=== PATIENT | female | born 1985 | race Caucasian/White ===

== ENCOUNTER 2018-01-20 12:21 | Emergency (ER) | payer BC, OTHER ==
[2018-01-20 13:38] LABS: BASO # 0.1 10^3/uL (0.0-0.2); BASO % 0.5 % (0.0-1.0); EOS # 0.1 10^3/uL (0.0-0.50); EOS % 0.6 % (0.0-3.0); HEMATOCRIT 40.1 % (36.0-47.0); HEMOGLOBIN 13.1 g/dl (12.0-15.5); IMMATURE GRANULOCYTE % 0.4 % (0-3.0); LYMPH # 3.3 10^3/uL (1.5-4.5); LYMPH % 26.5 % (24.0-44.0); MEAN CORPUSCULAR HEMOGLOBIN 28.9 pg (27.0-33.0); MEAN CORPUSCULAR HGB CONC 32.7 g/dl (32.0-36.5); MEAN CORPUSCULAR VOLUME 88.5 fl (80.0-96.0); MONO # 0.9 10^3/uL (0.0-0.8); MONO % 7.3 % (0.0-5.0); NEUTROPHILS # 8.1 10^3/uL (1.8-7.7); NEUTROPHILS % 64.7 % (36.0-66.0); PLATELET COUNT, AUTOMATED 303 10^3/uL (150-450); RED BLOOD COUNT 4.53 10^6/uL (4.00-5.40); RED CELL DISTRIBUTION WIDTH 13.2 % (11.5-14.5); WHITE BLOOD COUNT 12.5 10^3/uL (4.0-10.0)
[2018-01-20 14:09] LABS: HCG, SERUM QUANTITATIVE 17394 MIU/ML
[2018-01-20 14:13] LABS: KETONE, URINE AUTO RFX NEGATIVE (NEGATIVE); LEUKOCYTE ESTERASE UR AUTO RFX NEGATIVE (NEGATIVE); MUCUS, URINE RFX SMALL (NEGATIVE); NITRITE, URINE AUTO RFX NEGATIVE (NEGATIVE); RBC, URINE AUTO RFX 3 /HPF (0-3); SPECIFIC GRAVITY UR AUTO RFX 1.018 (1.002-1.035); SQUAM EPITHELIAL CELL UR AURFX 1 /HPF (0-6); WBC, URINE AUTO RFX 3 /HPF (0-3)
== END 2018-01-20 16:15 | disposition home or self-care (01) ==
LOC: M ED 12:21
DX: O26.891 Other specified pregnancy related conditions, first trimester (principal); O34.81 Maternal care for other abnormalities of pelvic organs, first trimester; N83.202 Unspecified ovarian cyst, left side; Z3A.01 Less than 8 weeks gestation of pregnancy; Z88.0 Allergy status to penicillin; Z88.2 Allergy status to sulfonamides
CPT/HCPCS: 76801

== ENCOUNTER 2018-09-11 01:48 | Inpatient (IN) | payer BC, OTHER ==
[~2018-09-11] VITALS: Ht 165.1 cm; Wt 113.9 kg
[2018-09-11] VITALS (39 sets, daily range): BP systolic 96–147; BP diastolic 51–94
[~2018-09-11 01:48] MED LIST: PRENTAB55 PO
[2018-09-11] MEDS ORDERED: ECOT81TA5 PO (02:54)
[2018-09-11] MEDS ORDERED: LR 1,000 ML IV SCH ×2 (03:38→23:15)
[2018-09-11] MEDS ORDERED: OXYTOCIN DRIP 30 UNITS in APPROPRIATE DILUENT 1 EA IV SCH ×2 (03:45→23:26)
[2018-09-11 04:33] LABS: HEMATOCRIT 39.3 % (36.0-47.0); HEMOGLOBIN 12.7 g/dl (12.0-15.5); MEAN CORPUSCULAR HEMOGLOBIN 27.1 pg (27.0-33.0); MEAN CORPUSCULAR HGB CONC 32.3 g/dl (32.0-36.5); MEAN CORPUSCULAR VOLUME 83.8 fl (80.0-96.0); PLATELET COUNT, AUTOMATED 197 10^3/uL (150-450); RED BLOOD COUNT 4.69 10^6/uL (4.00-5.40); WHITE BLOOD COUNT 12.1 10^3/uL (4.0-10.0)
[2018-09-11 05:03] LABS: TOTAL PROTEIN,RANDOM URINE 311.5 MG/DL (0.0-12.0)
[2018-09-11 05:25] LABS: ALT/SGPT 15 U/L (12-78); BILIRUBIN,TOTAL 0.2 MG/DL (0.2-1.0); CREATININE FOR GFR 0.55 MG/DL (0.55-1.30); GLOMERULAR FILTRATION RATE > 60.0 (>60); LDH LACTATE DEHYDROGENASE 292 U/L (84-246)
--- NOTE | 2018-09-11 06:45 | HPE ---
DATE OF ADMISSION: 09/11/2018 Rosanna is a 33-year-old, 3, para 1-0-1-1 with an expected date of confinement (EDC) of 09/23/2018 based on third trimester ultrasound. She presents to labor and delivery today with a complaint of spontaneous rupture of membranes at approximately 0100, clear fluis. She does deny vaginal bleeding and regular painful contractions. She does report continued leakage and the fetus has been active. Her care was initiated at [facility] in [place]. Her course is complicated by obesity and a prior section due to heart rate abnormality during labor and preeclampsia. OBSTETRICAL HISTORY: September 2009 - She had an ectopic . January 2012 - 39 weeks gestation, 8 pounds 9 ounces male, delivered via section and complicated by preeclampsia. OBSTETRIC LABS: A+. Antibody screen negative. VDRL nonreactive. Urine culture was positive with a test of cure negative. Hepatitis B surface antigen nonreactive. HIV negative. Gonorrhea and chlamydia negative. Rubella immune. Pap was normal. Drug screen negative. Hepatitis C antibody negative. Diabetic screening normal at 123. Repeat gonorrhea and chlamydia negative. Group B strep positive. PAST MEDICAL HISTORY: Childhood varicella, heart murmur, obesity, polycystic ovarian syndrome. SURGERIES: section, wisdom tooth extraction, colposcopy. FAMILY HISTORY: Noncontributory. SOCIAL HISTORY: The patient's partner is at bedside and he is supportive. She is a nonsmoker. She denies alcohol and drug use. No history of any sexually transmitted infections and denies history of abuse - physical, sexual and emotional. CURRENT MEDICATIONS: - vitamin - valacyclovir for HSV 1 as needed. ALLERGIES: - PENICILLIN - SULFA - PET DANDER - SEASONAL ALLERGIES OBJECTIVE: Temperature 99.3, pulse 97, respirations 20, blood pressure is 142/94. She is alert and oriented times three. She is in no apparent discomfort. heart rate is 130 with moderate variability, positive accelerations, no decelerations. There is no pattern of regular contractions. She is grossly ruptured. Large amount of clear fluid noted. Her abdomen is gravid, cephalic presentation. Estimated weight 8 and 1/2 to 9 9 pounds. Sterile Vaginal Exam: 1 cm dilated, 80% effaced and ballottable station, mid position. ASSESSMENT: 1. Intrauterine at 38-2/7 weeks. 2. heart rate is category one. 3. Premature rupture of membranes. 4. Prior section with a desire for trial of labor after . 5. Pre eclampsia potential PLAN: Admit the patient to labor and delivery. Clear liquid diet. Out of bed ad yanna. Routine lab work with the addition of pre-eclamptic profile and a spot urine. Start IV Pitocin for labor augmentation. Start IV antibiotics for GBS prophylaxis. She reports her allergy to penicillin was hives as a child and denies any anaphylactic reaction. I did review risks and benefits to induction including but not limited to failed induction, increased risk for section and intolerance to labor. The patient has been verbally consented for emergency surgery and blood products. I do anticipate labor and she does request an epidural when she is uncomfortable. The patient and her family had their questions answered and desire to proceed with IV Pitocin. I anticipate active labor. MTDD
--- NOTE | 2018-09-11 09:12 | NUR ---
Progress Note Taking over the care of this 33yo at 38+2 weeks. Undergoing a trial of labor after . Diagnosed with PROM, clear fluid at 0105 this AM. Fritz satinderangel receiving Pitocin for labor augmentation, active management. GBS positive. Receiving IV abx for GBS prophylaxis, Ancef. Noted to have elevated BPs (mild range) and proteinuria (elevated Pr/Cr ratio). History of pre-e with previous . Had PLTCS for worsening pre-e, non-reassuring status. Highly desirous of . Has been a patient of Nicole Ceballos for care. Currently normotensive, normal HR, afebrile SVE: /-3 US,daniel: cephalic presentation confirmed. EFM: Cat I [place]: ctxs every 2-5min; pit at 12mU/min Cook cervical dilator balloon inserted (60ml/40ml) A/P: 33yo , 38+2 weeks. PROM, TOLAC undergoing active management. Reassuring maternal and status thus far. -Continue with Pitocin -Repeat SVE once Cook balloon is out. Julian Rutherford DO FACOG
[2018-09-11] MEDS ORDERED: PROMETHAZINE INJ 25 MG/ML VIAL (J2550) IV ONE (09:15)
[2018-09-11] MEDS ORDERED: BUTORPHANOL 2 MG/ML INJ (J0595) IV ONE (09:15)
[2018-09-11] MEDS ORDERED: REFRIGERATOR IV KEYS XX PRN ×2 (11:30→14:15)
[2018-09-11] MEDS ORDERED: EPIDURAL COMMENT XX SCH ×2 (11:30→14:15)
[2018-09-11] MEDS ORDERED: EPIDURAL/PCA KEYS XX PRN ×2 (11:30→14:15)
[2018-09-11] MEDS: FENTANYL/ROPIVACAINE/NACL BAG 100 ML EPIDURAL SCH ×2 (12:10→19:24)
[2018-09-11] MEDS ORDERED: ceFAZolin SOD 1 GM in D5W MINI-BAG PLUS 50 ML IV SCH (12:30)
[2018-09-11] MEDS ORDERED: LACTATED RINGER'S 1000 ML IV PRN (14:15)
[2018-09-11] MEDS ORDERED: NALOXONE INJ 0.4 MG/1 ML VIAL (J2310) IV PRN ×3 (14:15→22:50)
[2018-09-11] MEDS ORDERED: ePHEDrine SULFATE 25 MG/5 ML(5MG/ML) SYRINGE IV PRN (14:15)
[2018-09-11] MEDS ORDERED: ONDANSETRON 4MG/2ML VIAL (J2405) IV PRN ×4 (14:15→23:30)
[2018-09-11] MEDS ORDERED: diphenhydrAMINE INJ 50MG/ML VIAL (J1200) IV PRN ×2 (14:15→22:50)
--- NOTE | 2018-09-11 14:31 | NUR ---
Progress Note Pt had epidural placed, and she is comfortable now. Cook balloon fell out around 1215. +bloody show. Pt hasn't had a lot of amniotic fluid expressed over the past several hours. Predominantly Cat I FHR, brief periods of Cat II FHR. Early vs late decels. Moderate variability throughout. Intermittently hypertensive (mild range), normal HR, afebrile SVE: 4/75/-3, cephalic. FSE placed with +LOF/clear [place]: ctxs q 2-4min; pit at 12mU/min FHR currently Cat I A/P: Overall reassuring maternal and status. -Continue with TOLAC -Adjust Pitocin as needed (per protocol) -Repeat SVE in 2-4 hours or sooner PRN. Julian Rutherford DO FACOG
--- NOTE | 2018-09-11 15:49 | NUR ---
Progress Note Pt still comfortable with epidural. Still predominantly Cat I FHR with brief periods of Cat II FHR. Early vs late decels. Moderate variability throughout. Currently normotensive, normal HR, afebrile SVE: 4/75/-3, cephalic; unchanged FSE placed with +LOF/clear [place]: ctxs q 2-4min; pit at 12mU/min FHR currently Cat I IUPC inserted. A/P: Overall reassuring maternal and status. -Continue with TOLAC -Adjust Pitocin as needed (per protocol) -Repeat SVE in 2-4 hours or sooner PRN. Julian Rutherford, DO FACOG
--- NOTE | 2018-09-11 18:21 | NUR ---
Progress Note Pt starting to feel more vaginal / lower pelvic pressure. Epidural still offering adequate relief. VSS,normal HR, afebrile SVE: /-3 FSE: Overall reassuring/cat I IUPC : >200mVU / 10min A/P: Protracted labor course. Pt counseled regarding arrest of dilation. Offered LTCS now, but patient requested allowing 2 more hours with Pitocin to see if cervical change occurs. Given patient's current status and current FHR pattern, this is acceptable. Will repeat SVE in approx 2 more hours. Julian Rutherford DO FACOG
[2018-09-11] MEDS ORDERED: BICITRA 30ML SOLN UDC As Ordered ONE (21:25)
[2018-09-11] MEDS ORDERED: ceFAZolin 2 GM/D5W 50 ML IV BAG (J0690 PER 500MG) As Ordered ONE (21:25)
[2018-09-11] MEDS ORDERED: AZITHROMYCIN INJ 500 MG, VIAL MATE ADAPTER 1 EACH in D5W 250 ML IV ONE (21:30)
[2018-09-11] MEDS ORDERED: BICITRA 30ML SOLN UDC PO ONE (21:30)
[2018-09-11] MEDS ORDERED: LIDOCAINE 2% W/EPIN INJ 20ML **PRES FREE As Ordered ONE (22:09)
[2018-09-11] MEDS ORDERED: ONDANSETRON 4MG/2ML VIAL (J2405) As Ordered ONE (22:09)
[2018-09-11] MEDS ORDERED: dexameTHASONE 4 MG/ML 1ML VIAL (J1100) As Ordered ONE (22:09)
[2018-09-11] MEDS ORDERED: SODIUM BICARBONATE 8.4% INJ 50 ML SYRINGE As Ordered ONE (22:09)
[2018-09-11] MEDS ORDERED: PHENYLephrine HCL 500 MCG/5 ML (100MCG/ML) SYRINGE (J2370) As Ordered ONE (22:09)
[2018-09-11] MEDS ORDERED: METOCLOPRAMIDE INJ 10MG/2ML VIAL (J2765) As Ordered ONE (22:09)
[2018-09-11] MEDS ORDERED: OXYTOCIN INJ 10 UNITS/ML VIAL (J2590) As Ordered ONE (22:10)
[2018-09-11] MEDS ORDERED: MORPHINE PRES-FREE INJ 10 MG/10 ML VIAL (J2274) As Ordered ONE (22:11)
[2018-09-11 22:37] LABS: CORD GAS ABE A -9.1; CORD GAS HCO3 A 22.1 MEQ/L; CORD GAS HCO3 V 22.8 MEQ/L; CORD GAS O2 SAT A < 15.0 %; CORD GAS O2 SAT V 17.2 %; CORD GAS PCO2 A 71.7 mmHg; CORD GAS PCO2 V 64.5 mmHg; CORD GAS PH A 7.107 UNITS; CORD GAS PH V 7.167 UNITS; CORD GAS PO2 A < 10.0 mmHg; CORD GAS PO2 V 20.7 mmHg; CORD GAS TCO2 A 24.3 MEQ/L; CORD GAS TCO2 V 24.8 MEQ/L
[2018-09-11] MEDS ORDERED: KETOROLAC 60 MG/2 ML VIAL (J1885) As Ordered ONE (22:48)
[2018-09-11] MEDS ORDERED: NALBUPHINE HCL 10 MG/ML AMP (J2300) IV PRN ×2 (22:50→23:15)
[2018-09-11] MEDS ORDERED: METOCLOPRAMIDE INJ 10MG/2ML VIAL (J2765) IV PRN (22:50)
[2018-09-11] MEDS ORDERED: fentaNYL 100 MCG/2 ML INJECTION (J3010) IV PRN (23:15)
--- NOTE | 2018-09-11 23:22 | NUR ---
Operative Note Date of procedure: 09/11/2018 Procedure:, Repeat low-transverse section, left paratubal cystectomy Anesthesia: Epidural Preoperative diagnosis: 38+2 weeks gestation Unsuccessful trial of labor, arrest of dilation Postoperative diagnosis: Same as preoperative diagnosis left paratubal cyst Indication: Arrested dilation at 4 cm. Left paratubal cyst. Primary surgeon: Fabrizio Rutherford D.O., F. A.C.O.G. Wood Cabinetmaker: Robert Gongora MD FACOG (needed for surgical site exposure and assistance with delivery) Estimated blood loss: 800 ml IV fluids administered: 1500 ml crystalloid Drains: Bal catheter. Urine output:150 ml [place] data: Apgars 8 and 9. Birthweight 3630, 8lbs 0oz. Preoperative/prophylactic antibiotics: Ancef 2 g IV (given within 30 minutes prior to surgical start time). Azithromycin 500mg IV x 1. Intraoperative findings: Occiput posterior, cephalic. Normal uterus and bilateral adnexa. Extensive bladder adhesions to the lower uterine segment. Specimen(s): left paratubal cyst Procedure: The patient was counseled and consented on the risks, benefits, indications and alternatives of the procedure. Informed consent was obtained and placed in the c roche. She was taken to the operating room with an IV running. She was placed on the operating table. Spinal anesthesia was administered without any difficulty and found to be adequate. She was placed in the dorsal supine position with a leftward tilt. Sequential compression devices were placed on the lower extremities. A Bal catheter was placed under sterile conditions. She was sterilely prepped and draped. A surgical timeout was performed per protocol. Spinal anesthesia was again found to be adequate. Using the 10 blade a Pfannenstiel incision was performed. The 10 blade was used to dissect down to the level of the rectus sheath fascia. The rectus sheath fas ree was incised at the midline, and the fascial incision was extended with Joyce scissors. Boby clamps were used to grasp the superior and inferior aspect of the fascial incision and the rectus muscle bellies were dissected off sharply and bluntly. The midline was identified and the rectus muscle bellies were manually . The peritoneum was identified and clamped with hemostats and elevated. The peritoneum was then incised with Metzenbaum scissors. Entry into the intraperitoneal cavity was achieved. The peritoneal opening was extended with manual stretch . There was good visualization of both the bladder and the lower uterine segment. The bladder retractor was placed. The vesicouterine peritoneum was dissected with Metzenbaum scissors and blunt dissection. Bladder retractor was repositioned. A low transverse uterine incision was made with a new 10 blade. The hysterotomy was extended with manual stretch. The amniotic sac was protruding and then artificially ruptured. Clear amniotic fluid was noted. The baby's head delivered through the hysterotomy with ease. The remainder of the body delivered with ease. The cord was doubly clamped and cut and the baby was handed off to awaiting care. See data above. The placenta was manually removed and noted to be fully intact. The uterus was exteriorized. The intrauterine cavity was cleared of all clot and debris with a laparotomy sponge. The hysterotomy was closed with 0 Vicryl in running, locked fashion. A second imbricating closure was performed over the initial laye r closure using 0 Vicryl The hysterotomy was noted to be hemostatic. A left paratubal cyst was excised at the base with the Bovie. The posterior cul-de-sac was irrigated and cleared of all clot and debris. The uterus was replaced back into the abdomen. The paracolic gutters were cleared of all clot and debris with damp laparotomy sponges. The hysterotomy is reinspected and noted to be hem ostatic. Sponge, needle and instrument counts were correct. The peritoneum was c losed with 3-0 Vicryl in running fashion. The rectus muscle bellies were reapproximated with 3-0 Vicryl with a series of interrupted sutures. The rectus muscle bellies were noted to be hemostatic. The fascia was closed with 0 Vicryl in running fashion. Sponge, needle and instrument counts were again correct. The subcutaneous layer was irrigated. Small subcutaneous bleeders were cauterized with Bovie. The subcutaneous layer was reapproximated with 3-0 Vicryl in running fashion. The skin was closed with 3-0 Monocryl in subcuticular fashion. A bandage was placed over the closed incision. The final sponge, instrument and needle count was correct. She tolerated the entire procedure very well. She was transferred to the PACU in good and stable condition. Dr. Fabrizio Rutherford D.O., F.A.C.O.G
[2018-09-11] MEDS ORDERED: PERCOCET PO (23:23)
[2018-09-11] MEDS ORDERED: IBUP80TA PO (23:24)
[2018-09-11] MEDS ORDERED: COLA100C5 PO (23:25)
[2018-09-11] MEDS: LR 1,000 ML IV SCH (23:26)
[2018-09-11] MEDS ORDERED: PROMETHAZINE 25 MG TAB PO PRN (23:30)
[2018-09-11] MEDS ORDERED: PERCOCET 5MG/325MG TAB PO PRN (23:30)
[2018-09-11] MEDS ORDERED: MEASLES,MUMPS,RUBELLA VACCINE INJ (MMR-II) (90707) SC SCH (23:30)
[2018-09-11] MEDS ORDERED: RHOGAM 300 MCG (1500 IU) INJ (J2790) IM SCH (23:30)
[2018-09-11] MEDS ORDERED: OXYTOCIN 30 UNITS IN 0.9% NaCl 500ML IV BAG (J2590) As Ordered ONE (23:43)
[2018-09-12] VITALS (7 sets, daily range): BP systolic 108–142; BP diastolic 60–81
--- NOTE | 2018-09-12 06:38 | NUR ---
POD#1 S/p RLTCS (failed TOLAC) S: Pain well controlled, tolerating PO, lochia decreasing / minimal. O: VSS, normotensive, normal HR, afebrile, adequate UOP H: RRR L: CTAB Abd: soft,nt,nd, incision dry w/ bandage Ext: no c/c/e Postop h/h: 11/33.6 A/P: POD#1 s/p RLTCS. Hemodynamically stable, afebrile, good pain control -Routine postop care -Anticipate d/c on POD2/3. Julian Rutherford DO
[2018-09-12] MEDS: KETOROLAC 30 MG/ML VIAL (J1885) IV SCH ×3 (07:11→18:41)
[2018-09-12 07:25] LABS: HEMATOCRIT 33.6 % (36.0-47.0); MEAN CORPUSCULAR HEMOGLOBIN 27.6 pg (27.0-33.0); MEAN CORPUSCULAR HGB CONC 32.7 g/dl (32.0-36.5); MEAN CORPUSCULAR VOLUME 84.4 fl (80.0-96.0); PLATELET COUNT, AUTOMATED 170 10^3/uL (150-450); RED BLOOD COUNT 3.98 10^6/uL (4.00-5.40); WHITE BLOOD COUNT 20.3 10^3/uL (4.0-10.0)
[2018-09-12] MEDS: LR 1,000 ML IV SCH (07:26)
[2018-09-12] MEDS: DOCUSATE SODIUM 100 MG CAP PO SCH ×2 (10:30→21:32)
[2018-09-12] MEDS: PRENATAL VITAMINS CHEWABLE TABLET PO SCH (10:30)
[2018-09-13] MEDS: IBUPROFEN 800 MG TAB PO SCH ×3 (01:17→16:40)
[2018-09-13 02:00] VITALS: BP 136/76
[2018-09-13 06:00] VITALS: BP 124/72
--- NOTE | 2018-09-13 07:16 | IPNPDOC ---
Text Note Date of Service The patient was seen on 09/13/18. NOTE PO #2 Feels well. Adequate pain management. Breast and bottle feeding. Voiding, bowels have moved VSS, afebrile, normotensive Breasts soft, nipples intact Fundus firm, NT Dressing intact with old drainage Lochia rubra scant without odor Pt desires assist with today. Anticipate D/C in am. VS,Fishbone, I+O VS, Fishbone, I+O Vital Signs Date Time Temp Pulse Resp B/P (MAP) Pulse Ox O2 Delivery O2 Flow Rate FiO2 09/13/18 06:00 97.4 77 18 124/72 (89) 09/12/18 18:05 97 09/12/18 06:08 Room Air I&O- Last 24 Hours up to 6 AM 09/13/18 06:00 Output Total 350 ml Balance -350 ml Mimi Blanco CNM Sep 13, 2018 07:16
[2018-09-13] MEDS: DOCUSATE SODIUM 100 MG CAP PO SCH ×2 (08:56→21:31)
[2018-09-13] MEDS: PRENATAL VITAMINS CHEWABLE TABLET PO SCH (08:57)
[2018-09-13 18:00] VITALS: BP 148/86
[2018-09-13] MEDS: PERCOCET 5MG/325MG TAB PO PRN (21:31)
[2018-09-14] MEDS: IBUPROFEN 800 MG TAB PO SCH ×2 (01:46→08:57)
[2018-09-14] MEDS: PERCOCET 5MG/325MG TAB PO PRN ×2 (05:03→10:53)
[2018-09-14 06:00] VITALS: BP 142/79
[2018-09-14] MEDS: DOCUSATE SODIUM 100 MG CAP PO SCH (08:57)
[2018-09-14] MEDS: PRENATAL VITAMINS CHEWABLE TABLET PO SCH (08:57)
[2018-09-14] MEDS ORDERED: OXYC1TAB23 PO (09:14)
--- NOTE | 2018-09-15 12:29 | DSES ---
DATE OF ADMISSION: 09/11/2018 DATE OF DISCHARGE: 09/14/2018 DISCHARGE DIAGNOSES: 1. Repeat section for failed induction. 2. Gestational hypertension. DISCHARGE CONDITION: Stable. DISCHARGE MEDICATIONS: - ibuprofen - Percocet - Colace DISCHARGE INSTRUCTIONS: 1. She is instructed to followup in 1 week for incision and blood pressure check. 2. To remain on pelvic rest for 8 weeks. 3. To report severe pain, heavy vaginal bleeding or incision issues. 4. Report issues with incision. HOSPITAL COURSE: Mrs. White is a 33-year-old 3, para 1 who presented at 38 weeks with rupture of membranes. Her history was significant for a prior section. She had expressed a desire for trial of labor after section which was unsuccessful. She had an arrest of dilatation and underwent uncomplicated section productive of a live born infant. Weight was 3630 grams or 8 pounds. Apgars 8 and 9. Estimated blood loss is 800 mL. She did well postoperatively and by postop day #3 had met all discharge criteria and was discharged home in stable condition. PHYSICAL EXAM ON DAY DISCHARGE: Vital signs: Blood pressure 142/79. Respiration 18. Pulse 82. Temperature 97.9. General appearance: She is well appearing, in no acute distress. Her abdomen was nontender. Fundus is firm below umbilicus. Incision was dressed. Extremities negative for calf tenderness.
--- NOTE | 2018-09-22 10:48 | NUR ---
Discharge Summary Date of admission: 09/11/18 Date of discharge: 09/14/18 Admitting diagnosis: Active labor, ruptured membranes at term. Trial of labor after . Gestational HTN Discharge diagnosis: Status post repeat low transverse section. Single, liveborn delivered via . Indication: Arrest of dilation, unsuccessful trial of labor after . Discharge Summary: 33 year-old G3 now P2. She was admitted on 09/11/18 at 38 weeks EGA with a diagnosis of ruptured membranes, gestational HTN, and desiring trial of labor after section. Her labor course was complicated by arrest of dilation. This prompted an unscheduled delivery under epidural anesthesia. The delivery was uncomplicated. The patient's postoperative course was uncomplicated. By 09/14/18, the patient was meeting all discharge criteria. Her pain was well controlled on oral pain meds. She was ambulating without assistance, voiding spontaneously, tolerating a regular diet, and her lochia/bleeding was minimal. Physical exam on date of discharge: Vitals: normotensive/mild HTN, normal HR, afebrile Heart: regular rate and rhythm with no murmurs, gallops, rubs. Lungs: clear to auscultation bilaterally, no wheezes, crackles, rales, ronchi Abd: soft, non-distended, appropriately tender. Normoactive bowel sounds. Incision: clean, dry, intact without surrounding erythema or induration. Ext: non-edematous, non-tender, negative Misty's sign bilaterally Assessment/Plan: 33 year-old G3 now P2 status post repeat delivery on 09/11/18. Hemodynamically stable, afebrile, with good pain control. Meeting all discharge criteria. -Routine infectious, fever, pain, and bleeding precautions reviewed -Surgical wound/incisional care / precautions reviewed. -Discharge medications: Percocet, Motrin, Colace. -Outpatient follow up in 1-2 weeks for a routine incision / postoperative check. Dr. Fabrizio Rutherford, DO, FACOG
== END 2018-09-14 12:10 | disposition home or self-care (01) | DRG 540 ==
LOC: M LDO 01:48 → M LDI 03:36 → M OBS 09-12 00:52
PROVIDERS: ADMIT Advanced Practice Midwife; ATTEND Advanced Practice Midwife
PROC: 0UB60ZZ Excision of Left Fallopian Tube, Open Approach (ICD-10-PCS; 2018-09-11)
PROC: 10D00Z1 Extraction of Products of Conception, Low, Open Approach (ICD-10-PCS; principal; 2018-09-11 21:56)
DX: O42.02 Full-term premature rupture of membranes, onset of labor within 24 hours of rupture (principal); N83.8 Other noninflammatory disorders of ovary, fallopian tube and broad ligament; O34.211 Maternal care for low transverse scar from previous cesarean delivery; Z37.0 Single live birth; Z3A.38 38 weeks gestation of pregnancy; Z88.0 Allergy status to penicillin; Z88.2 Allergy status to sulfonamides; O62.0 Primary inadequate contractions; O26.893 Other specified pregnancy related conditions, third trimester

== ENCOUNTER 2018-10-20 08:18 | Emergency (ER) | payer OTHER ==
[~2018-10-20] VITALS: Ht 165.1 cm; Wt 102.8 kg
[~2018-10-20 08:18] MED LIST changes: +COLA100C5 PO; +ECOT81TA5 PO; +IBUP80TA PO; +OXYC1TAB23 PO; +PERCOCET PO
[2018-10-20 08:19] VITALS: BP 131/78
[2018-10-20] MEDS ORDERED: FLUORESCEIN OPHTH 1 MG STRIP OS ONE (08:45)
[2018-10-20] MEDS ORDERED: TETRACAINE 0.5% OPHTH SOLN 4ML OS ONE (08:45)
[2018-10-20] MEDS ORDERED: ERYTOIN8 OS (09:03)
== END 2018-10-20 09:13 | disposition home or self-care (01) ==
LOC: M ED 08:18
DX: H10.32 Unspecified acute conjunctivitis, left eye (principal); Z88.0 Allergy status to penicillin; Z88.2 Allergy status to sulfonamides; Z97.3 Presence of spectacles and contact lenses

== ENCOUNTER → 2019-05-25 | Outpatient (REF) | payer OTHER ==
[~2019-05-25] MED LIST changes: +ERYTOIN8 OS
[2019-05-29 00:08] LABS: HPV HYBRID CAPTURE II Negative (Negative)
== END ==
LOC: M LAB REF 13:47
PROVIDERS: ATTEND Obstetrics & Gynecology
DX: Z12.4 Encounter for screening for malignant neoplasm of cervix (principal)

== ENCOUNTER → 2020-02-10 | Outpatient (CLI) | payer OTHER | LOC: M LABSMTC 11:15 | PROVIDERS: ATTEND Pediatrics | DX: Z03.818 Encounter for observation for suspected exposure to other biological agents ruled out (principal); Z11.59 Encounter for screening for other viral diseases ==

== ENCOUNTER → 2020-03-04 | Outpatient (CLI) | payer OTHER ==
[2020-03-04 10:39] LABS: BASO # 0.1 10^3/uL (0.0-0.2); BASO % 0.7 % (0.0-1.0); EOS # 0.1 10^3/uL (0.0-0.5); HEMATOCRIT 40.3 % (36.0-47.0); HEMOGLOBIN 12.5 g/dl (12.0-15.5); LYMPH # 2.4 10^3/uL (1.5-5.0); LYMPH % 27.6 % (24.0-44.0); MEAN CORPUSCULAR HEMOGLOBIN 27.4 pg (27.0-33.0); MEAN CORPUSCULAR VOLUME 88.2 fl (80.0-96.0); MONO # 0.8 10^3/uL (0.0-0.8); MONO % 8.9 % (0.0-5.0); NEUTROPHILS # 5.3 10^3/uL (1.5-8.5); NEUTROPHILS % 61.2 % (36.0-66.0); PLATELET COUNT, AUTOMATED 299 10^3/uL (150-450); RED BLOOD COUNT 4.57 10^6/uL (4.00-5.40); WHITE BLOOD COUNT 8.7 10^3/uL (4.0-10.0)
[2020-03-04 10:54] LABS: ALT/SGPT 23 U/L (12-78); BILIRUBIN,TOTAL 0.3 MG/DL (0.2-1.0); BLOOD UREA NITROGEN 11 MG/DL (7-18); CALCIUM LEVEL 8.9 MG/DL (8.5-10.1); CARBON DIOXIDE LEVEL 25 MEQ/L (21-32); CHLORIDE LEVEL 108 MEQ/L (98-107); CREATININE FOR GFR 0.77 MG/DL (0.55-1.30); GLOMERULAR FILTRATION RATE > 60.0 (>60); GLUCOSE, FASTING 88 MG/DL (70-100); POTASSIUM SERUM 4.3 MEQ/L (3.5-5.1); SODIUM LEVEL 140 MEQ/L (136-145); THYROID STIMULATING HORMONE 0.895 uIU/ML (0.358-3.740); TOTAL PROTEIN 7.2 GM/DL (6.4-8.2)
== END ==
LOC: M WUC 08:19
PROVIDERS: ATTEND Nurse Practitioner Family
DX: Z00.00 Encounter for general adult medical examination without abnormal findings (principal)

== ENCOUNTER → 2020-10-28 | Outpatient (CLI) | payer OTHER ==
[~2020-10-28] MED LIST changes: +CEFD300CAP PO; +METR-265 PO; +ONDA4TAB6 PO; +PRENTAB53 PO; +ZOLO100T
--- NOTE | 2020-10-28 13:33 | REP ---
INDICATION: GESTATIONAL DATING POSSIBLE EPTOPIC PREG. COMPARISON: None. TECHNIQUE: Transabdominal imaging. FINDINGS: Uterus is anteverted. There is a gestational sac in the fundus and it appears that the placenta may be forming post posteriorly it shows grade 0 maturation characteristics without previa no yolk sac is seen. There is fluid and a pole is noted measuring 6.1 cm by crown-rump length. This would give her 12 week 4 day date with the EDC 05/08/2021. heart rate 145 and regular. No subchorionic bleed identified. The right ovary 4.3 by 3.6 x 2.8 cm and the left 3.4 x 1.9 by 2.7 cm. Neither ovary shows solid or cystic mass nor adjacent free fluid. IMPRESSION: Single intrauterine gestational sac in the fundus with a pole having a crown-rump length 6.1 cm corresponding to 12 weeks 4 days, this gives EDC 05/08/2021 heart rate 145. No subchorionic bleed. Ovaries fairly symmetric without adnexal mass or pelvic free fluid. <Electronically signed by Kole Christiansen > 10/28/20 [id number]
== END ==
LOC: M RAD 12:14
PROVIDERS: ATTEND Nurse Practitioner Family
DX: Z32.01 Encounter for pregnancy test, result positive (principal); Z3A.12 12 weeks gestation of pregnancy

== ENCOUNTER 2020-11-01 17:05 | Emergency (ER) | payer OTHER ==
[~2020-11-01] VITALS: Ht 165.1 cm; Wt 53.6 kg
[~2020-11-01 17:05] MED LIST changes: -CEFD300CAP PO; -METR-265 PO; -ONDA4TAB6 PO; -PRENTAB53 PO; -ZOLO100T
[2020-11-01] MEDS ORDERED: PRENTAB53 PO (17:16)
[2020-11-01] MEDS ORDERED: ZOLO100T (17:16)
[2020-11-01 18:32] LABS: APPEARANCE, URINE CLOUDY (CLEAR); BACTERIA, URINE AUTO 1+ (NEGATIVE); BILIRUBIN, URINE AUTO NEGATIVE (NEGATIVE); BLOOD, URINE BLOOD 2+ (NEGATIVE); CALCIUM OXALATE CRYSTALS LARGE; COLOR, URINE YELLOW (YELLOW); GLUCOSE, URINE (UA) AUTO NEGATIVE (NEGATIVE); KETONE, URINE AUTO NEGATIVE (NEGATIVE); LEUKOCYTE ESTERASE, URINE AUTO NEGATIVE (NEGATIVE); MUCUS, URINE SMALL (NEGATIVE); NITRITE, URINE AUTO NEGATIVE (NEGATIVE); PROTEIN, URINE AUTO NEGATIVE (NEGATIVE); RBC, URINE AUTO 13 /HPF (0-3); SPECIFIC GRAVITY URINE AUTO 1.025 (1.002-1.035); SQUAMOUS EPITHELIAL CELL UR AU 4 /HPF (0-6); UROBILINOGEN, URINE AUTO 0.2 mg/dL (0.0-2.0); WBC, URINE AUTO 6 /HPF (0-3)
--- NOTE | 2020-11-01 19:11 | REPVR ---
PROCEDURE INFORMATION: Exam: US First Trimester, Transabdominal Exam date and time: 11/01/2020 6:40 PM Age: 35 years old Clinical indication: complicated by abdominal or pelvic pain; Gestational age or lmp: 13w 0d; ; Additional info: 13 wks preg, sudden onset pain TECHNIQUE: Imaging protocol: Real-time transabdominal obstetrical ultrasound of the maternal pelvis and a first trimester , less than 14 weeks 0 days, with image documentation. COMPARISON: CT ABD PELVIS W/O CONTRAST 03/04/2015 1:04 AM FINDINGS: Gestation: Single gestational sac demonstrated within the uterus. Single pole measuring 67 cm. Embryonic/ heart rate: 163 bpm Placenta: Posterior low-lying placenta. Follow-up ultrasound suggested to document placental position. Amniotic fluid: Amniotic fluid is normal for gestational age. BIOMETRY: Gestational age (AUA): Gestational age based on crown-rump length is 13 weeks 0 days in this patient with unknown menstrual dates. MATERNAL: Uterus: Uterus measures 12.2 x 8.3 x 9.5 cm. Cervix: Unremarkable. Right adnexa: Unremarkable. Left adnexa: Unremarkable. Intraperitoneal space: No intraperitoneal free fluid. IMPRESSION: 1. Posterior low-lying placenta. Follow-up ultrasound suggested to document placental position. 2. Otherwise unremarkable scan at 13 weeks 0 days. Electronically signed by: Tray Steven On 11/01/2020 19:11:13 PM
--- NOTE | 2020-11-01 19:14 | REPVR ---
PROCEDURE INFORMATION: Exam: US Retroperitoneal Limited, Kidneys Exam date and time: 11/01/2020 7:04 PM Age: 35 years old Clinical indication: Other: Oxylate crystals in urine; ; Additional info: Pelvic pain, CA oxylate crystals in urine R/O hu/hn TECHNIQUE: Imaging protocol: Real-time ultrasound of the retroperitoneum with image documentation. Examination was focused on the kidneys. COMPARISON: 1ST TRIMESTER US 11/01/2020 6:30 PM FINDINGS: Right kidney: Right kidney measures 12.4 x 6.3 x 5.6 cm. Normal parenchyma. No hydronephrosis. Left kidney: Left kidney measures 13.9 x 7 x 5.1 cm. Normal parenchyma. No hydronephrosis. Echogenic focus demonstrated in the interpolar region at the corticomedullary junction in the left kidney measuring 6 mm which may represent a vessel on end or a small nonobstructive calculus. IMPRESSION: Echogenic focus demonstrated in the interpolar region at the corticomedullary junction in the left kidney measuring 6 mm which may represent a vessel on end or a small nonobstructive calculus. Notably there is no evidence of a radiopaque calculus on the prior CT of 03/04/2015 in this patient with a history of calcium oxalate dysuria. Electronically signed by: Tray Steven On 11/01/2020 19:15:01 PM
[2020-11-01 20:02] LABS: BASO # 0.1 10^3/uL (0.0-0.2); BASO % 0.4 % (0.0-1.0); EOS # 0.1 10^3/uL (0.0-0.5); EOS % 0.6 % (0.0-3.0); HEMATOCRIT 39.2 % (36.0-47.0); HEMOGLOBIN 12.4 g/dl (12.0-15.5); LYMPH # 1.8 10^3/uL (1.5-5.0); LYMPH % 12.1 % (24.0-44.0); MEAN CORPUSCULAR HEMOGLOBIN 27.7 pg (27.0-33.0); MEAN CORPUSCULAR HGB CONC 31.6 g/dl (32.0-36.5); MEAN CORPUSCULAR VOLUME 87.7 fl (80.0-96.0); MONO # 1.2 10^3/uL (0.0-0.8); MONO % 8.1 % (2.0-8.0); NEUTROPHILS # 11.8 10^3/uL (1.5-8.5); PLATELET COUNT, AUTOMATED 203 10^3/uL (150-450); RED BLOOD COUNT 4.47 10^6/uL (4.00-5.40); WHITE BLOOD COUNT 15.1 10^3/uL (4.0-10.0)
--- NOTE | 2020-11-01 23:50 | REPVR ---
PROCEDURE INFORMATION: Exam: MR Abdomen Without Contrast And MR Pelvis Without Contrast Exam date and time: 11/01/2020 11:04 PM Age: 35 years old Clinical indication: Abdominal pain; Flank; Right lower quadrant (rlq); Additional info: Right lower quadrant pain, 13 weeks , TECHNIQUE: Imaging protocol: MR abdomen and pelvis without contrast. COMPARISON: 1. RENAL US 11/01/2020 6:52 PM 2. 1ST TRIMESTER US 11/01/2020 6:30:[address] ABD PELVIS W/O CONTRAST 03/04/2015 1:04:25 AM FINDINGS: Liver: The imaged portion of the liver is unremarkable. The liver was not fully imaged. Gallbladder and bile ducts: Normal. No gallstones are noted. No gallbladder wall thickening, pericholecystic fluid, or pericholecystic inflammatory changes are identified. No dilation of the bile ducts is noted. The common bile duct measures 6 mm in diameter. No stones are seen in the common bile duct. Pancreas: Normal. No dilation of the main pancreatic duct is noted. There is no inflammatory fat stranding around the pancreas to suggest acute pancreatitis. Spleen: No splenic lesion is noted. The spleen is enlarged and measures 16 cm. Adrenals: Normal. No adrenal mass is noted. Kidneys and ureters: Unremarkable. No renal lesion. No hydronephrosis. No perinephric fluid collection. Stomach and bowel: There is thickening of the wall of the distal ileum (image 16 of the coronal T2 with fat saturation series 201). There is a moderate amount of stool in the ascending colon and transverse colon. No bowel obstruction is noted. Appendix: Normal. There is no evidence for appendicitis. Retroperitoneal space: No fluid collection. No mass. Intraperitoneal space: No free fluid. Arteries: The abdominal aorta is normal in caliber. Lymph nodes: No enlarged lymph nodes. Bladder: The distended urinary bladder is unremarkable. Reproductive: There is a 13 mm corpus luteal cyst in the right ovary. The left ovary is normal in appearance. No tubo-ovarian abscess is present. There is a single intrauterine . The location of the placenta is posterior. No perigestational hemorrhage is seen. Bones/joints: The bone marrow signal is unremarkable. There are degenerative changes involving the sacroiliac joints. Soft tissues: Unremarkable. IMPRESSION: 1. Normal appendix. 2. Thickening of the wall of the distal ileum, which may be secondary to its decompressed state versus an ileitis. 3. 13 mm corpus luteal cyst in the right ovary. 4. Moderate amount of formed stool in the ascending colon and transverse colon. No bowel obstruction. 5. Splenomegaly. Electronically signed by: Juan J Gaitan On 11/01/2020 23:50:36 PM
[2020-11-02] MEDS ORDERED: CEFDINIR 300 MG CAP (OMNICEF) PO ONE (00:30)
[2020-11-02] MEDS ORDERED: METR-265 PO (00:30)
[2020-11-02] MEDS ORDERED: CEFD300CAP PO (00:30)
[2020-11-02] MEDS ORDERED: metroNIDAZOLE (FLAGYL) 500MG TABLET PO ONE (00:30)
[2020-11-02] MEDS ORDERED: ONDA4TAB6 PO (00:30)
[2020-11-02] MEDS ORDERED: ONDANSETRON 4 MG ORAL DISINTEGRATING TAB PO ONE (00:35)
[2020-11-02 00:45] VITALS: BP 111/63
--- NOTE | 2020-11-03 08:32 | ED PDOC ---
Post-Departure Follow-Up renal us and first trimester us faxed to both dr kamla brasher nad dr johnny chavez for f u Dipak Strickland MD Nov 03, 2020 08:32
== END 2020-11-02 01:29 | disposition home or self-care (01) ==
LOC: M ED 17:05
DX: O99.612 Diseases of the digestive system complicating pregnancy, second trimester (principal); Z87.59 Personal history of other complications of pregnancy, childbirth and the puerperium; O09.522 Supervision of elderly multigravida, second trimester; Z3A.13 13 weeks gestation of pregnancy; Z88.0 Allergy status to penicillin; Z88.2 Allergy status to sulfonamides
CPT/HCPCS: 74181; 76775; 76801; 80047; 81001; 85025; 99285; Q0162

== ENCOUNTER → 2020-11-28 | Outpatient (REF) | payer OTHER ==
[~2020-11-28] MED LIST changes: +CEFD300CAP PO; +METR-265 PO; +ONDA4TAB6 PO; +PRENTAB53 PO; +ZOLO100T
[2020-11-28 11:05] LABS: HEMATOCRIT 37.5 % (36.0-47.0); HEMOGLOBIN 11.8 g/dl (12.0-15.5); MEAN CORPUSCULAR HGB CONC 31.5 g/dl (32.0-36.5); MEAN CORPUSCULAR VOLUME 88.9 fl (80.0-96.0); PLATELET COUNT, AUTOMATED 189 10^3/uL (150-450); RED BLOOD COUNT 4.22 10^6/uL (4.00-5.40); WHITE BLOOD COUNT 12.5 10^3/uL (4.0-10.0)
[2020-11-28 12:41] LABS: HIV 1&2 SCREEN CENTAUR NEGATIVE (NEGATIVE)
== END ==
LOC: M PLALAB 08:33
PROVIDERS: ATTEND Obstetrics & Gynecology
DX: O09.529 Supervision of elderly multigravida, unspecified trimester (principal)

== ENCOUNTER → 2020-12-07 | Outpatient (CLI) | payer OTHER ==
--- NOTE | 2020-12-07 08:44 | REP ---
INDICATION: ANATOMY COMPARISON: 11/01/2020 TECHNIQUE: Transabdominal obstetrical ultrasound with color Doppler evaluation. FINDINGS: Examination demonstrates a single live intrauterine in variable presentation. motion is identified by technologist. Placenta is noted posterior and grade 0 without evidence for placenta previa or abruption. Amniotic fluid volume is normal. Cervix measures 4.2 cm in length and appears closed.. Gestational age by LMP 18 weeks 2 days with WANDA 05/08/2021. Gestational age by current measurements 18 weeks 4 days with WANDA 05/06/2021. FHR equals 147 beats per minute. BPD: 4.1 cm at 18 weeks 2 days HC: 14.7 cm at 17 weeks 6 days AC: 13.0 cm at 18 weeks 4 days FL: 2.9 cm at 18 weeks 6 days HL: 2.9 cm at 19 weeks 2 days HC/AC: 1.13 Estimated weight 247 grams (63rdpercentile). Anatomical assessment demonstrates normal structures including cranium, choroid plexus, cavum, cerebellum/posterior fossa, facial features, lungs, four-chamber heart/ventricular outflow tracts, diaphragm, stomach, cord insertion/three-vessel cord, kidneys/bladder, spine, and extremities. IMPRESSION: Single live intrauterine in variable presentation demonstrating appropriate estimated weight and growth. Anatomical assessment is complete and normal. <Electronically signed by Edgar Mauro > 12/07/20 [id number]
== END ==
LOC: M WHC 06:59
PROVIDERS: ATTEND Obstetrics & Gynecology
DX: O09.522 Supervision of elderly multigravida, second trimester (principal); Z3A.18 18 weeks gestation of pregnancy

== ENCOUNTER → 2021-01-25 | Outpatient (REF) | payer OTHER ==
[2021-01-25 13:58] LABS: HEMATOCRIT 37.9 % (36.0-47.0); HEMOGLOBIN 11.8 g/dl (12.0-15.5); MEAN CORPUSCULAR HEMOGLOBIN 27.3 pg (27.0-33.0); MEAN CORPUSCULAR HGB CONC 31.1 g/dl (32.0-36.5); MEAN CORPUSCULAR VOLUME 87.7 fl (80.0-96.0); PLATELET COUNT, AUTOMATED 204 10^3/uL (150-450); RED BLOOD COUNT 4.32 10^6/uL (4.00-5.40); WHITE BLOOD COUNT 10.7 10^3/uL (4.0-10.0)
== END ==
LOC: M PLALAB 10:28
PROVIDERS: ATTEND Obstetrics & Gynecology
DX: O34.211 Maternal care for low transverse scar from previous cesarean delivery (principal); Z3A.00 Weeks of gestation of pregnancy not specified

== ENCOUNTER → 2021-03-10 | Outpatient (CLI) | payer OTHER ==
--- NOTE | 2021-03-10 11:45 | REP ---
INDICATION: M79.89 LT LOWER LEG EDEMA,SWELLING COMPARISON: None. TECHNIQUE: Real time compression and duplex Doppler interrogation of the left lower extremity deep venous system is performed.Compression of the left posterior tibial vein is performed. FINDINGS: The left common femoral, superficial femoral and popliteal veins are fully compressible with transducer pressure and demonstrate normal spontaneous and phasic flow, without evidence of deep venous thrombosis. The visualized left posterior tibial vein demonstrates no thrombus. IMPRESSION: No evidence of deep venous thrombosis of the left lower extremity femoral popliteal venous system.No thrombus in the visualized left posterior tibial vein. <Electronically signed by Olaf Pagan > 03/10/21 [id number]
== END ==
LOC: M WHC 10:57
PROVIDERS: ATTEND Obstetrics & Gynecology
DX: M79.89 Other specified soft tissue disorders (principal)

== ENCOUNTER → 2021-03-27 | Outpatient (CLI) | payer OTHER ==
[2021-03-27 16:09] LABS: HEMOGLOBIN 12.8 g/dl (12.0-15.5); MEAN CORPUSCULAR HEMOGLOBIN 27.2 pg (27.0-33.0); MEAN CORPUSCULAR VOLUME 85.1 fl (80.0-96.0); PLATELET COUNT, AUTOMATED 212 10^3/uL (150-450); WHITE BLOOD COUNT 12.3 10^3/uL (4.0-10.0)
[2021-03-27 16:28] LABS: TOTAL PROTEIN,RANDOM URINE 15.1 MG/DL (0.0-12.0)
[2021-03-27 16:30] LABS: ALT/SGPT 19 U/L (12-78); BILIRUBIN,TOTAL 0.2 MG/DL (0.2-1.0); GLOMERULAR FILTRATION RATE > 60.0 (>60); LDH LACTATE DEHYDROGENASE 150 U/L (84-246); URIC ACID 4.6 MG/DL (2.6-6.0)
== END ==
LOC: M PLALAB 12:09
PROVIDERS: ATTEND Obstetrics & Gynecology
DX: O13.3 Gestational [pregnancy-induced] hypertension without significant proteinuria, third trimester (principal); Z3A.00 Weeks of gestation of pregnancy not specified

== ENCOUNTER → 2021-03-27 | Outpatient (REF) | payer OTHER | LOC: M SFHCWAGY 18:23 | PROVIDERS: ATTEND Obstetrics & Gynecology | DX: O13.3 Gestational [pregnancy-induced] hypertension without significant proteinuria, third trimester (principal); Z36.89 Encounter for other specified antenatal screening; Z3A.34 34 weeks gestation of pregnancy ==

== ENCOUNTER → 2021-03-30 | Outpatient (CLI) | payer OTHER ==
--- NOTE | 2021-03-30 16:18 | REP ---
INDICATION: BPP/GROWTH/CANDIDO/HYPERTENSION. COMPARISON: 12/07/2020 anatomy screen ultrasound TECHNIQUE: A transabdominal imaging for growth, cord Doppler estimated weight and biophysical profile FINDINGS: Scanning demonstrates a viable single intrauterine gestation in a breech lie. motion is observed and heart rate is recorded at 136 beats per minute. An posterior, grade 1 placenta is seen without evidence of previa. Amniotic fluid is subjectively normal. CANDIDO is 23.7 with normal range 8-24.8. Closed cervical length is measured at 4.5 cm transabdominally. No extrauterine abnormality is observed. There has been appropriate interval growth. No anatomy screen was performed is S was completed the time of the 2nd trimester examination.. Biometry chart: BPD 8.6 cm; 34 weeks 4 days Head circumference 31.3 cm; 35 weeks 0 days Abdominal circumference 33.2 cm; 37 weeks 1 days Femur length 7 cm; 35 weeks 5 days Humeral length 6.1 cm; 35 weeks 3 days HC/AC ratio normal 0.94 Cephalic index normal 0.77 Estimated weight 2883 grams, 6 pounds 5 ounces, 90th percentile for 34 weeks 3 days. Biophysical profile: Breathin Tone: 2 Movement: 2 AFV: 2 Mid cord umbilical artery Doppler shows an S/D ratio 2.57 with normal forward diastolic flow. Resistive index 0.61. All of this is normal IMPRESSION: Viable single intrauterine gestation at 35 weeks 4 days by today's composite sonographic criteria. Expected gestational age estimate based on prior sonography is 34 weeks is 3 days. WANDA by prior sonography 05/08/2021. Biophysical profile score 8/8. There has been appropriate interval growth. Normal cord Doppler SD ratio and normal forward diastolic flow. <Electronically signed by Kole Christiansen > 03/30/21 [id number]
== END ==
LOC: M WHC 14:05
PROVIDERS: ATTEND Obstetrics & Gynecology
DX: O26.849 Uterine size-date discrepancy, unspecified trimester (principal); O13.3 Gestational [pregnancy-induced] hypertension without significant proteinuria, third trimester; Z3A.35 35 weeks gestation of pregnancy

== ENCOUNTER → 2021-04-14 | Outpatient (CLI) | payer OTHER ==
[~2021-04-14] MED LIST changes: +ASPI81CH33 PO; +CLAR10CA3 PO; -ZOLO100T; +ZOLO100T PO
== END ==
LOC: M LABSMTC 12:08
PROVIDERS: ATTEND Anesthesiology
DX: Z01.812 Encounter for preprocedural laboratory examination (principal); Z20.822 Contact with and (suspected) exposure to COVID-19

== ENCOUNTER 2021-04-19 06:43 | Inpatient (IN) | payer OTHER ==
[~2021-04-19] VITALS: Ht 165.1 cm; Wt 127.9 kg
[2021-04-19] VITALS (12 sets, daily range): BP systolic 110–142; BP diastolic 56–87
[2021-04-19] MEDS ORDERED: TUMS500C PO (07:47)
[2021-04-19] MEDS ORDERED: LACTATED RINGER'S 1000 ML IV STA (07:48)
[2021-04-19] MEDS ORDERED: LR 1,000 ML IV SCH (07:50)
[2021-04-19] MEDS ORDERED: ceFAZolin SOD 3 GM in IV 1 EA IV ONE (08:30)
[2021-04-19] MEDS ORDERED: ceFAZolin SOD 2 GM in IV 1 EA IV ONE (08:40)
[2021-04-19] MEDS ORDERED: ceFAZolin SOD 1 GM in D5W MINI-BAG PLUS 50 ML IV ONE (08:40)
[2021-04-19] MEDS ORDERED: BICITRA 30ML SOLN UDC PO ONE (08:45)
[2021-04-19] MEDS ORDERED: OXYTOCIN 30 UNITS IN 0.9% NaCl 500ML IV BAG (J2590) As Ordered ONE ×2 (09:06→12:14)
[2021-04-19] MEDS ORDERED: METOCLOPRAMIDE INJ 10MG/2ML VIAL (J2765 PER 1) As Ordered ONE (09:07)
[2021-04-19] MEDS ORDERED: ONDANSETRON 4MG/2ML VIAL As Ordered ONE (09:07)
[2021-04-19] MEDS ORDERED: KETOROLAC 60MG 2ML VIAL As Ordered ONE (09:07)
[2021-04-19] MEDS ORDERED: MORPHINE PRES-FREE INJ 10 MG/10 ML VIAL (J2274) As Ordered ONE (09:09)
[2021-04-19 09:27] LABS: HEMATOCRIT 39.6 % (36.0-47.0); HEMOGLOBIN 12.9 g/dl (12.0-15.5); MEAN CORPUSCULAR HEMOGLOBIN 28.1 pg (27.0-33.0); MEAN CORPUSCULAR HGB CONC 32.6 g/dl (32.0-36.5); MEAN CORPUSCULAR VOLUME 86.3 fl (80.0-96.0); PLATELET COUNT, AUTOMATED 208 10^3/uL (150-450); RED BLOOD COUNT 4.59 10^6/uL (4.00-5.40); WHITE BLOOD COUNT 12.7 10^3/uL (4.0-10.0)
[2021-04-19] MEDS ORDERED: PHENYLephrine 500MCG 5ML (100MCG/ML) SYRINGE As Ordered ONE ×2 (10:48→11:10)
[2021-04-19] MEDS ORDERED: NALOXONE INJ 0.4MG/1ML VIAL (J2310 PER 1MG) IV PRN ×2 (10:57)
[2021-04-19] MEDS ORDERED: ONDANSETRON 4MG/2ML VIAL IV PRN ×3 (10:57→12:55)
[2021-04-19] MEDS ORDERED: NALBUPHINE HCL 10 MG/ML AMP (J2300) IV PRN ×2 (10:57→12:55)
[2021-04-19] MEDS ORDERED: diphenhydrAMINE 50MG/ML VIAL (J1200) IV PRN ×2 (10:57→12:55)
[2021-04-19] MEDS ORDERED: METOCLOPRAMIDE INJ 10MG/2ML VIAL (J2765 PER 1) IV PRN (10:57)
[2021-04-19] MEDS ORDERED: OXYTOCIN INJ 10 UNITS/ML VIAL (J2590) As Ordered ONE (11:44)
[2021-04-19] MEDS ORDERED: MEASLES,MUMPS,RUBELLA VACCINE INJ (MMR-II) (90707) SC SCH (12:20)
[2021-04-19] MEDS: LR 1,000 ML IV SCH ×2 (12:20→17:55)
[2021-04-19] MEDS ORDERED: OXYTOCIN DRIP 30 UNITS in IV 1 EA IV SCH (12:20)
[2021-04-19] MEDS ORDERED: RHOGAM 300 MCG (1500 IU) INJ (J2790) IM SCH (12:20)
[2021-04-19] MEDS ORDERED: SIMETHICONE 80MG CHEW TAB PO PRN (12:20)
[2021-04-19] MEDS ORDERED: ACETAMINOPHEN 500 MG TAB PO PRN (12:20)
--- NOTE | 2021-04-19 12:24 | ROOPDOC ---
[facility] Report Of Operation Report of Operation DATE OF PROCEDURE: 04/19/2021 PREPROCEDURE DIAGNOSES:. 37+ weeks gestation. Gestational hypertension/preeclampsia, history of low transverse section 2. Satisfied parity POSTPROCEDURE DIAGNOSES: Same PROCEDURE: Repeat low transverse section with [place] bilateral tubal ligation. SURGEON: Fabrizio Rutherford DO FACOG FINGER GRIP MACHINE OPERATOR: Julian Golden CNM (Essential role in retraction, extraction, and closure of all tissue layers) ANESTHESIA: Spinal w/ Duramorph ESTIMATED BLOOD LOSS: 700 mL. IV FLUIDS: 1500 mL LR URINE OUTPUT: 25 mL COMPLICATIONS: None. FINDINGS: Normal uterus and bilateral fallopian tubes/ovaries. PREOPERATIVE ANTIBIOTICS: Ancef 3g IV x 1. DATA: Apgars 9 and 9. Birthweight 3270g, 7lbs 3oz . SPECIMENS: right and left fallopian tubal segments. PRIMARY INDICATION FOR : history of prior sections and satisfied parity DESCRIPTION OF PROCEDURE: The patient was counseled on the risks, benefits, indications and alternatives of the procedure. Informed consent was obtained. She was taken to the operating room with IV running and placed on the operating table in the dorsal supine position with a leftward tilt. Regional anesthesia was found to be adequate. Sequential compression devices were placed on the lower extremities. A Bal catheter was placed under sterile conditions. She was prepared and draped in normal sterile fashion. A time out was performed per protocol. Regional anesthesia was again found to be adequate. A Pfannenstiel skin incision was made with the 10 blade. The 10 blade was used to dissect down to the level of the rectus sheath fascia. The rectus sheath pressure was incised midline and this was extended bilaterally with Joyce scissors , and manual stretch. The rectus muscle bellies were dissected off the rectus sheath fascia superiorly and inferiorly using both sharp and blunt dissection. The midline was identified. The peritoneum was identified and the cavity entered. The peritoneal opening was extended with manual stretch. The Mobius retractor was placed. The vesicouterine peritoneum was dissected with Metzenbaum scissors to create the bladder flap. A low transverse uterine incision was made with the 10 blade. This was extended with manual stretch. The amniotic sac was punctured, and clear fluid was noted. The baby delivered through the hysterotomy without difficulty. The cord was doubly clamped and cut, and the baby was handed off to awaiting care. data shown above. The placenta was removed manually. The intrauterine cavity was cleared of all clot and debris. The hysterotomy was closed with 0 Vicryl in running locked fashion. This was reinforced with a second imbricating layer using 0 Vicryl in running fashion. Excellent hemostasis of the hysterotomy was noted. The right and left fallopian tubes were followed out to the fimbriated end. A ligation was performed on each fallopian tube using the following technique (Jonelle): The ampullary portion of each was grasped with a Taylor and elevated. A peritoneal window was created with Bovie along the mesosalpinx. Plain gut suture was used to tie two locations of the fallopian tube at the ends of the created window. The approximate 2-3cm intervening segment of fallopian tube was excised with Metzenbaum scissors. Bovie cautery was used to obliterate the lumen of the fallopian tube on each cut end, and to ensure hemostasis. Excellent hemostasis was noted. The pelvis was irrigated and the fluid suctioned. The Mobius retractor was removed. The peritoneum was closed with 3-0 Vicryl running fashion. The rectus muscle bellies were reapproximated with interrupted stitches using 3-0 Vicryl. The rectus muscles bellies were hemostatic. The rectus sheath fascia was closed with 0 Vicryl running fashion. The subcutaneous layer was irrigated and the fluid suctioned. Small bleeding vessels were cauterized with Bovie. Excellent hemostasis was noted. The subcutaneous layer was reapproximated with 3-0 Vicryl running fashion. Skin was closed with 3-0 Monocryl in subcuticular fashion. An Optifoam bandage was placed over the closed incision. Sponge, needle and instrument counts were correct per protocol throughout the procedure. The patient tolerated the entire procedure very well. She was transferred to the PACU in stable condition. DO DIANE Chase JONATHAN R. DO Apr 19, 2021 12:24
[2021-04-19] MEDS ORDERED: IBUP80TA PO (12:26)
[2021-04-19] MEDS ORDERED: PERCOCET PO (12:26)
[2021-04-19] MEDS ORDERED: COLA100C5 PO (12:26)
[2021-04-19] MEDS ORDERED: HYDROMORPHONE HCL 0.5 MG/ 0.5 ML SYRINGE (J1170 PER 1) IV PRN (12:55)
[2021-04-19] MEDS ORDERED: oxyCODONE 5MG TAB PO PRN (12:55)
[2021-04-19] MEDS ORDERED: MEPERIDINE INJ 25 MG/ML VIAL (J2175) IV PRN (12:55)
[2021-04-19] MEDS ORDERED: fentaNYL 100 MCG/2 ML INJECTION (J3010) IV PRN (12:55)
[2021-04-19 13:06] LABS: HEMATOCRIT 38.8 % (36.0-47.0); HEMOGLOBIN 12.4 g/dl (12.0-15.5); MEAN CORPUSCULAR HEMOGLOBIN 27.9 pg (27.0-33.0); MEAN CORPUSCULAR VOLUME 87.2 fl (80.0-96.0); PLATELET COUNT, AUTOMATED 203 10^3/uL (150-450); RED BLOOD COUNT 4.45 10^6/uL (4.00-5.40); WHITE BLOOD COUNT 12.8 10^3/uL (4.0-10.0)
[2021-04-19 13:27] LABS: CREATININE FOR GFR 0.51 MG/DL (0.55-1.30); GLOMERULAR FILTRATION RATE > 60.0 (>60)
[2021-04-19] MEDS ORDERED: HOME MED LIST COMPLETE! XX SCH (16:00)
[2021-04-19] MEDS: ENOXAPARIN 40MG/0.4ML SYRINGE (J1650 PER 10MG) SC SCH (17:55)
[2021-04-19] MEDS: KETOROLAC 30 MG/ML 1ML VIAL IV SCH (17:56)
[2021-04-19] MEDS: DOCUSATE SODIUM 100MG CAPSULE PO SCH (21:35)
[2021-04-20] MEDS: KETOROLAC 30 MG/ML 1ML VIAL IV SCH ×2 (00:09→06:37)
[2021-04-20] MEDS: LR 1,000 ML IV SCH (00:31)
[2021-04-20 02:33] VITALS: BP 114/56
[2021-04-20 06:22] VITALS: BP 128/66
[2021-04-20 08:21] LABS: HEMATOCRIT 32.6 % (36.0-47.0); MEAN CORPUSCULAR HEMOGLOBIN 27.5 pg (27.0-33.0); MEAN CORPUSCULAR VOLUME 88.8 fl (80.0-96.0); PLATELET COUNT, AUTOMATED 162 10^3/uL (150-450); RED BLOOD COUNT 3.67 10^6/uL (4.00-5.40); WHITE BLOOD COUNT 10.5 10^3/uL (4.0-10.0)
[2021-04-20 08:29] LABS: HEMOGLOBIN 10.1 g/dl (12.0-15.5)
[2021-04-20] MEDS: DOCUSATE SODIUM 100MG CAPSULE PO SCH ×2 (09:36→21:30)
[2021-04-20] MEDS: SERTRALINE 100 MG TAB PO SCH (09:36)
[2021-04-20] MEDS: PRENATAL VITAMINS CHEWABLE TABLET PO SCH (09:36)
[2021-04-20] MEDS: ENOXAPARIN 40MG/0.4ML SYRINGE (J1650 PER 10MG) SC SCH (09:37)
[2021-04-20 09:50] VITALS: BP 128/83
[2021-04-20] MEDS: PERCOCET 5MG/325MG TAB PO PRN ×2 (12:19→23:10)
[2021-04-20 14:00] VITALS: BP 127/75
[2021-04-20] MEDS: IBUPROFEN 800 MG TAB PO SCH ×2 (14:50→21:30)
[2021-04-20 18:00] VITALS: BP 142/76
[2021-04-21] MEDS: PERCOCET 5MG/325MG TAB PO PRN ×2 (03:40→13:04)
[2021-04-21 06:00] VITALS: BP 133/67
[2021-04-21] MEDS: IBUPROFEN 800 MG TAB PO SCH ×2 (06:30→14:13)
--- NOTE | 2021-04-21 07:54 | IPNPDOC ---
Text Note Date of Service The patient was seen on 04/21/21. NOTE PO #2 Feels well. Adequate pain management. . Voiding. in NICU. VSS, afebrile, normotensive Breasts soft, nipples intact Fundus firm, NT Dressing intact Lochia rubra light without odor PO #2 Routine care. Anticipate D/C in am VS,Fishbone, I+O VS, Fishbone, I+O Vital Signs Date Time Temp Pulse Resp B/P (MAP) Pulse Ox O2 Delivery O2 Flow Rate FiO2 04/21/21 06:00 96.9 83 17 133/67 (89) 97 Room Air Mimi Blanco CNM Apr 21, 2021 07:54
[2021-04-21] MEDS: PRENATAL VITAMINS CHEWABLE TABLET PO SCH (09:00)
[2021-04-21] MEDS: DOCUSATE SODIUM 100MG CAPSULE PO SCH (09:00)
[2021-04-21] MEDS: ENOXAPARIN 40MG/0.4ML SYRINGE (J1650 PER 10MG) SC SCH (09:00)
[2021-04-21] MEDS: SERTRALINE 100 MG TAB PO SCH (09:00)
--- NOTE | 2021-04-21 14:52 | DS.PDOC ---
Discharge Summary General Date of Admission Apr 19, 2021 at 06:43 Date of Discharge April 21, 2021 Discharge Summary PROCEDURES PERFORMED DURING STAY: Repeat section with bilateral tubal ligation ADMITTING DIAGNOSES: 1. Gestational hypertension. 2. AMA 3. Prior section DISCHARGE DIAGNOSES: 1. Repeat section with bilateral tubal ligation 2. Gestational hypertension COMPLICATIONS/CHIEF COMPLAINT: Previous Section. HISTORY OF PRESENT ILLNESS: 35yo G6 now [id number] admitted 04/19/2021 for repeat section at 37weeks for gestational hypertension HOSPITAL COURSE: Out of bed independently. Tolerating diet. Adequate pain management. Voiding, passing flatus. DISCHARGE MEDICATIONS: Please see below. ALLERGIES: Please see below. PHYSICAL EXAMINATION ON DISCHARGE: VITAL SIGNS: Please see below. GENERAL: No distress HEENT: WNL CARDIOVASCULAR EXAMINATION: HRR, BP well controlled RESPIRATORY EXAMINATION: Clear, unlabored ABDOMINAL EXAMINATION: Fundus firm, dressing intact EXTREMITIES: Equal strength and motion SKIN: Intact NEUROLOGICAL EXAMINATION: Grossly intact PSYCHIATRIC EXAMINATION: Appropriate LABORATORY DATA: Please see below. PROGNOSIS: Good ACTIVITY: As tolerated. Pelvic rest DIET: Regular DISPOSITION: Home. DISCHARGE INSTRUCTIONS: 1. Routine care and precautions. Pelvic rest. Remove dressing day 5. Cleanse wound daily with warm soapy water, rinse well and pat dry. Call with fever, nausea, vomiting, chills, foul lochia, wound exudate. Return to office 2 wks and 6wks. DISCHARGE CONDITION: Stable TIME SPENT ON DISCHARGE: 10 minutes. Vital Signs/I&Os Vital Signs Date Time Temp Pulse Resp B/P (MAP) Pulse Ox O2 Delivery O2 Flow Rate FiO2 04/21/21 13:35 16 04/21/21 06:00 96.9 83 133/67 (89) 97 Room Air Discharge Medications Scheduled Aspirin (Aspirin) 81 Mg Tab.chew, 81 MG PO DAILY, (Reported) Docusate Sodium (Colace) 100 Mg Capsule, 100 MG PO BID Ibuprofen (Ibuprofen) 800 Mg Tablet, 800 MG PO Q8H Loratadine (Claritin) 10 Mg Capsule, 10 MG PO DAILY, (Reported) Vit,Calc76/Iron/Folic (Prenatabs Rx Tablet) 1 Each Tablet, 2 TAB PO DAILY, (Reported) Sertraline Hcl (Zoloft) 100 Mg Tablet, 100 MG PO DAILY, (Reported) Scheduled PRN Calcium Carbonate (Tums) 200 Mg Tab.chew, 500 MG PO PRN PRN for HEARTBURN, ( Reported) Oxycodone/Acetaminophen (Oxycodone-Acetaminophen 5-325) 1 Each Tablet, 1 TAB PO Q4H PRN for MILD/MODERATE PAIN (PS 1-7) Allergies Coded Allergies: Penicillins (Verified Allergy, Severe, throat swelled, 04/19/21) pt states she is unsure since this reaction was when she was young PT TOLERATES CEPHALOSPORINS Sulfa (Sulfonamide Antibiotics) (Verified Allergy, Unknown, 11/01/20) Mimi Blanco CNM Apr 21, 2021 14:52
== END 2021-04-21 18:18 | disposition home or self-care (01) | DRG 785 ==
LOC: M LDI 06:43 → M OBS 16:15
PROVIDERS: ADMIT Obstetrics & Gynecology; ATTEND Obstetrics & Gynecology
PROC: 0UB70ZZ Excision of Bilateral Fallopian Tubes, Open Approach (ICD-10-PCS; 2021-04-19)
PROC: 10D00Z1 Extraction of Products of Conception, Low, Open Approach (ICD-10-PCS; principal; 2021-04-19 09:30)
DX: O13.4 Gestational [pregnancy-induced] hypertension without significant proteinuria, complicating childbirth (principal); O34.211 Maternal care for low transverse scar from previous cesarean delivery; Z3A.37 37 weeks gestation of pregnancy; Z37.0 Single live birth; Z30.2 Encounter for sterilization

== ENCOUNTER → 2021-08-16 | Outpatient (REF) | payer OTHER ==
[~2021-08-16] MED LIST changes: +TUMS500C PO
== END ==
LOC: M SFHCWAGY 10:55
PROVIDERS: ATTEND Obstetrics & Gynecology
DX: Z12.4 Encounter for screening for malignant neoplasm of cervix (principal)
CPT/HCPCS: 87624; G0123

== ENCOUNTER 2022-02-27 00:23 | Emergency (ER) | payer OTHER ==
[~2022-02-27] VITALS: Ht 165.1 cm; Wt 123.9 kg
[2022-02-27] MEDS ORDERED: KETOROLAC 30 MG/ML 1ML VIAL IV ONE (01:10)
[2022-02-27] MEDS ORDERED: NS 1,000 ML IV ONE (01:10)
[2022-02-27] MEDS ORDERED: ONDANSETRON 4MG/2ML VIAL IV ONE ×2 (01:10→05:00)
[2022-02-27 01:48] LABS: BASO # 0.1 10^3/uL (0.0-0.2); BASO % 0.5 % (0.0-1.0); EOS # 0.1 10^3/uL (0.0-0.5); EOS % 0.6 % (0.0-3.0); HEMATOCRIT 40.9 % (36.0-47.0); HEMOGLOBIN 13.5 g/dl (12.0-15.5); LYMPH % 18.5 % (24.0-44.0); MEAN CORPUSCULAR VOLUME 87.8 fl (80.0-96.0); MONO % 6.4 % (2.0-8.0); NEUTROPHILS # 11.8 10^3/uL (1.5-8.5); NEUTROPHILS % 73.4 % (36.0-66.0); PLATELET COUNT, AUTOMATED 286 10^3/uL (150-450); RED BLOOD COUNT 4.66 10^6/uL (4.00-5.40)
[2022-02-27 02:10] LABS: HCG, SERUM QUALITATIVE NEGATIVE (NEGATIVE)
[2022-02-27 02:12] LABS: ALBUMIN 4.1 GM/DL (3.2-5.2); ALT/SGPT 27 U/L (12-78); BILIRUBIN,DIRECT < 0.1 MG/DL (0.0-0.2); BILIRUBIN,TOTAL 0.3 MG/DL (0.2-1.0); BLOOD UREA NITROGEN 11 MG/DL (7-18); CALCIUM LEVEL 8.7 MG/DL (8.5-10.1); CARBON DIOXIDE LEVEL 23 MEQ/L (21-32); CHLORIDE LEVEL 109 MEQ/L (98-107); CREATININE FOR GFR 0.82 MG/DL (0.55-1.30); GLOMERULAR FILTRATION RATE > 60.0 (>60); GLUCOSE, FASTING 141 MG/DL (70-100); LIPASE 159 U/L (73-393); POTASSIUM SERUM 3.7 MEQ/L (3.5-5.1); SODIUM LEVEL 141 MEQ/L (136-145); TOTAL PROTEIN 6.9 GM/DL (6.4-8.2)
[2022-02-27] MEDS ORDERED: CIPROFLOXACIN 400 MG in IV 1 EA IV ONE (03:45)
[2022-02-27] MEDS ORDERED: TAMSULOSIN 0.4 MG CAP PO ONE (03:45)
[2022-02-27] MEDS ORDERED: MORPHINE 4 MG/ML 1ML VIAL/SYRINGE IV PRN (05:00)
[2022-02-27] MEDS ORDERED: METOCLOPRAMIDE INJ 10MG/2ML VIAL (J2765 PER 1) IV ONE (07:00)
[2022-02-27] MEDS ORDERED: FLOM0.4C39 PO (07:01)
[2022-02-27] MEDS ORDERED: CIPR-249 PO (07:01)
[2022-02-27] MEDS ORDERED: PERC5TAB12 PO (07:01)
[2022-02-27] MEDS ORDERED: ACETAMINOPHEN 325 MG TAB PO ONE (08:00)
[2022-02-27 09:41] VITALS: BP 116/57
== END 2022-02-27 09:57 | disposition home or self-care (01) ==
LOC: M ED 00:23
DX: N21.1 Calculus in urethra (principal); K76.0 Fatty (change of) liver, not elsewhere classified; Z79.82 Long term (current) use of aspirin; Z79.899 Other long term (current) drug therapy; Z88.0 Allergy status to penicillin; Z88.2 Allergy status to sulfonamides
CPT/HCPCS: 74176; 80048; 80076; 81001; 83690; 84703; 85025; 87088; 87186; 96361; 96365; 96366; 96375; 96376; 99284; J0744; J1885; J2270; J2405; J2765

== ENCOUNTER → 2022-03-14 | Outpatient (REF) | payer OTHER ==
[~2022-03-14] MED LIST changes: +CIPR-249 PO; +FLOM0.4C39 PO; +PERC5TAB12 PO
== END ==
LOC: M SMT 17:14
PROVIDERS: ATTEND Urology
DX: N20.1 Calculus of ureter (principal)

== ENCOUNTER 2023-07-19 10:47 | Emergency (ER) | payer OTHER ==
[~2023-07-19] VITALS: Ht 165.1 cm; Wt 123.2 kg
[2023-07-19] MEDS ORDERED: WELLTAB38 PO (11:11)
[2023-07-19] MEDS ORDERED: BUPR15TA PO (11:11)
[2023-07-19 11:59] LABS: RSV AMPLIFICATION NEGATIVE (NEGATIVE)
[2023-07-19 13:10] LABS: BASO % 0.2 % (0.0-1.0); EOS # 0.1 10^3/uL (0.0-0.5); EOS % 0.3 % (0.0-3.0); HEMATOCRIT 36.2 % (36.0-47.0); HEMOGLOBIN 11.7 g/dl (12.0-15.5); LYMPH # 1.5 10^3/uL (1.5-5.0); LYMPH % 7.5 % (24.0-44.0); MEAN CORPUSCULAR HEMOGLOBIN 26.4 pg (27.0-33.0); MEAN CORPUSCULAR HGB CONC 32.3 g/dl (32.0-36.5); MEAN CORPUSCULAR VOLUME 81.5 fl (80.0-96.0); MONO % 12.4 % (2.0-8.0); NEUTROPHILS # 15.5 10^3/uL (1.5-8.5); NEUTROPHILS % 79.1 % (36.0-66.0); PLATELET COUNT, AUTOMATED 218 10^3/uL (150-450); RED BLOOD COUNT 4.44 10^6/uL (4.00-5.40); WHITE BLOOD COUNT 19.6 10^3/uL (4.0-10.0)
[2023-07-19] MEDS ORDERED: ONDANSETRON 4MG 2ML VIAL IV ONE (13:20)
[2023-07-19] MEDS ORDERED: NS 1,000 ML IV ONE ×2 (13:20→15:50)
[2023-07-19] MEDS ORDERED: ACETAMINOPHEN *IV* 1,000 MG in IV 1 EA IV ONE (13:20)
[2023-07-19 13:29] LABS: LIPASE 19 U/L (12-53)
[2023-07-19 13:31] LABS: ALBUMIN 3.3 G/DL (3.2-5.2); ALKALINE PHOSPHATASE 65 U/L (46-116); ALT/SGPT 26 U/L (7.0-40); AST/SGOT 16 U/L (<34); BILIRUBIN,DIRECT 0.3 MG/DL (<0.4); BILIRUBIN,TOTAL 0.6 MG/DL (0.3-1.2); TOTAL PROTEIN 6.5 G/DL (5.7-8.2)
[2023-07-19 13:34] LABS: MONO # 2.4 10^3/uL (0.0-0.8)
[2023-07-19 13:59] LABS: HCG, SERUM QUALITATIVE NEGATIVE (NEGATIVE)
[2023-07-19] MEDS ORDERED: cefTRIAXone SOD 1 GM in D5W MINI-BAG PLUS 50 ML IV ONE (14:40)
[2023-07-19] MEDS ORDERED: KETOROLAC 30 MG/ML 1ML VIAL IV ONE (15:05)
[2023-07-19 17:30] VITALS: BP 113/60; TEMP 98.9; O2SAT 95
[2023-07-19] MEDS ORDERED: CIPR500T39 PO (18:00)
[2023-07-19] MEDS ORDERED: IBUP-1022 PO (18:00)
[2023-07-19] MEDS ORDERED: REGL5TAB2 PO (18:00)
== END 2023-07-19 18:28 | disposition home or self-care (01) ==
LOC: EDBD 10:47 → M ED 10:47
DX: N12 Tubulo-interstitial nephritis, not specified as acute or chronic (principal); E28.2 Polycystic ovarian syndrome; Z88.0 Allergy status to penicillin; Z88.2 Allergy status to sulfonamides; Z87.442 Personal history of urinary calculi; Z11.52 Encounter for screening for COVID-19; J02.9 Acute pharyngitis, unspecified
CPT/HCPCS: 70450; 74176; 80047; 80076; 81001; 83605; 83690; 84702; 84703; 85025; 87040; 87088; 87186; 87486; 87581; 87631; 87633; 87798; 96361; 96365; 96367; 96375; 99284; J0131; J0696; J1885; J2405

== ENCOUNTER → 2023-09-20 | Outpatient (CLI) | payer OTHER ==
[~2023-09-20] MED LIST changes: +APPLCAP PO; +BUPR15TA PO; +CIPR500T39 PO; +IBUP-1022 PO; +REGL5TAB2 PO; +WELLTAB38 PO
[2023-09-20 13:31] LABS: BASO # 0.1 10^3/uL (0.0-0.2); BASO % 0.5 % (0.0-1.0); EOS # 0.1 10^3/uL (0.0-0.5); EOS % 1.3 % (0.0-3.0); HEMATOCRIT 39.5 % (36.0-47.0); HEMOGLOBIN 12.2 g/dl (12.0-15.5); LYMPH # 3.4 10^3/uL (1.5-5.0); LYMPH % 33.3 % (24.0-44.0); MEAN CORPUSCULAR HEMOGLOBIN 25.7 pg (27.0-33.0); MEAN CORPUSCULAR HGB CONC 30.9 g/dl (32.0-36.5); MEAN CORPUSCULAR VOLUME 83.3 fl (80.0-96.0); MONO % 9.8 % (2.0-8.0); NEUTROPHILS # 5.6 10^3/uL (1.5-8.5); NEUTROPHILS % 54.7 % (36.0-66.0); PLATELET COUNT, AUTOMATED 307 10^3/uL (150-450); RED BLOOD COUNT 4.74 10^6/uL (4.00-5.40); WHITE BLOOD COUNT 10.3 10^3/uL (4.0-10.0)
[2023-09-20 14:03] LABS: FREE T4 1.05 NG/DL (0.89-1.76)
[2023-09-20 14:04] LABS: ALBUMIN 3.9 G/DL (3.2-5.2); ALKALINE PHOSPHATASE 64 U/L (46-116); ALT/SGPT 16 U/L (7.0-40); AST/SGOT 9 U/L (<34); BILIRUBIN,TOTAL 0.3 MG/DL (0.3-1.2); BLOOD UREA NITROGEN 11 MG/DL (9-23); CALCIUM LEVEL 9.2 MG/DL (8.5-10.1); CARBON DIOXIDE LEVEL 24 MMOL/L (20-31); CHLORIDE LEVEL 108 MMOL/L (98-107); CHOLESTEROL LEVEL 209 MG/DL (<200); CHOLESTEROL RISK RATIO 5.63 (<5); GLOMERULAR FILTRATION RATE > 60.0 (>60); GLUCOSE, FASTING 77 MG/DL (60-100); HDL CHOLESTEROL 37.1 MG/DL (>40); LDL CHOLESTEROL 119.9 MG/DL (<100); NON-HDL-C 171.9 MG/DL; POTASSIUM SERUM 4.1 MMOL/L (3.5-5.1); SODIUM LEVEL 140 MMOL/L (136-145); TOTAL PROTEIN 7.1 G/DL (5.7-8.2); TRIGLYCERIDES LEVEL 260 MG/DL (<150)
[2023-09-20 14:05] LABS: THYROID STIMULATING HORMONE 1.469 uIU/ML (0.55-4.78)
[2023-09-20 14:14] LABS: HEMOGLOBIN A1c 5.3 % (4.0-6.0)
== END ==
LOC: M PLALAB 11:45
PROVIDERS: ATTEND Nurse Practitioner Family
DX: E78.2 Mixed hyperlipidemia (principal); R63.5 Abnormal weight gain; R53.83 Other fatigue; Z13.1 Encounter for screening for diabetes mellitus

== ENCOUNTER → 2023-09-20 | Outpatient (CLI) | payer OTHER ==
[2023-09-20 13:53] LABS: APPEARANCE, URINE CLEAR (CLEAR); BACTERIA, URINE AUTO 1+ (NEGATIVE); BILIRUBIN, URINE AUTO NEGATIVE (NEGATIVE); BLOOD, URINE BLOOD NEGATIVE (NEGATIVE); COLOR, URINE STRAW (YELLOW); GLUCOSE, URINE (UA) AUTO NEGATIVE (NEGATIVE); KETONE, URINE AUTO NEGATIVE (NEGATIVE); LEUKOCYTE ESTERASE, URINE AUTO NEGATIVE (NEGATIVE); MUCUS, URINE SMALL (NEGATIVE); NITRITE, URINE AUTO NEGATIVE (NEGATIVE); PROTEIN, URINE AUTO NEGATIVE (NEGATIVE); RBC, URINE AUTO 0 /HPF (0-3); SQUAMOUS EPITHELIAL CELL UR AU 1 /HPF (0-6); UROBILINOGEN, URINE AUTO 0.2 mg/dL (0.0-2.0); WBC, URINE AUTO 1 /HPF (0-3)
== END ==
LOC: M PLALAB 11:47
PROVIDERS: ATTEND Nurse Practitioner Family
DX: Z01.818 Encounter for other preprocedural examination (principal)

== ENCOUNTER → 2023-09-23 | Outpatient (CLI) | payer OTHER | LOC: M WHC 07:50 | PROVIDERS: ATTEND Obstetrics & Gynecology | DX: N93.9 Abnormal uterine and vaginal bleeding, unspecified (principal) ==

== ENCOUNTER → 2023-09-23 | Outpatient (REF) | payer OTHER | LOC: M SFHCWAGY 17:41 | PROVIDERS: ATTEND Obstetrics & Gynecology | DX: Z12.4 Encounter for screening for malignant neoplasm of cervix (principal) | CPT/HCPCS: 87624; G0123 ==

== ENCOUNTER → 2023-09-25 | Outpatient (CLI) | payer OTHER | LOC: M RAD 13:03 | PROVIDERS: ATTEND Nurse Practitioner Family | DX: Z01.818 Encounter for other preprocedural examination (principal); R94.31 Abnormal electrocardiogram [ECG] [EKG] ==

== ENCOUNTER 2023-09-26 06:06 | Day surgery (SDC) | payer OTHER ==
[~2023-09-26] VITALS: Ht 165.1 cm; Wt 120.5 kg
[~2023-09-26 06:06] MED LIST changes: +LevoFLOXacin IV 500 MG in IV 1 EA IV ONE
[2023-09-26] MEDS ORDERED: LR 1,000 ML IV SCH (06:50)
[2023-09-26] MEDS ORDERED: ONDANSETRON 4MG 2ML VIAL As Ordered ONE (06:53)
[2023-09-26] MEDS ORDERED: LIDOCAINE 2% 100MG/5ML SDV (FOR ANES.) As Ordered ONE (06:53)
[2023-09-26] MEDS ORDERED: propofoL 200 MG/20 ML VIAL As Ordered ONE (06:53)
[2023-09-26] MEDS ORDERED: fentaNYL 100 MCG/2 ML INJECTION As Ordered ONE (06:57)
[2023-09-26] MEDS ORDERED: MIDAZOLAM INJ 2MG/2ML VIAL As Ordered ONE (06:57)
[2023-09-26] MEDS ORDERED: ACETAMINOPHEN 1000MG 100ML IV BAG As Ordered ONE (07:53)
[2023-09-26] MEDS ORDERED: OXYC1TAB23 PO (08:06)
[2023-09-26] MEDS ORDERED: FLOM0.4C39 PO (08:06)
[2023-09-26 08:50] VITALS: BP 130/84; TEMP 97; O2SAT 97
== END 2023-09-26 09:20 | disposition home or self-care (01) ==
LOC: M SDC 06:06
PROVIDERS: ATTEND Urology
DX: N20.0 Calculus of kidney (principal); F41.9 Anxiety disorder, unspecified; Z79.899 Other long term (current) drug therapy; Z88.0 Allergy status to penicillin; Z88.2 Allergy status to sulfonamides
CPT/HCPCS: 50590; 74018; 81025; J0131; J1100; J1956; J2250; J2405; J3010

== ENCOUNTER → 2023-10-23 | Outpatient (CLI) | payer OTHER ==
[~2023-10-23] MED LIST changes: -LevoFLOXacin IV 500 MG in IV 1 EA IV ONE
== END ==
LOC: M RAD 10:29
PROVIDERS: ATTEND Nurse Practitioner Family
DX: Z87.442 Personal history of urinary calculi (principal)

== ENCOUNTER → 2024-04-02 | Outpatient (CLI) | payer OTHER ==
[~2024-04-02] MED LIST changes: +ONDA-282 PO; -ONDA4TAB6 PO
[2024-04-02 10:57] LABS: BASO # 0.1 10^3/uL (0.0-0.2); BASO % 0.8 % (0.0-1.0); EOS # 0.2 10^3/uL (0.0-0.5); EOS % 1.4 % (0.0-3.0); HEMATOCRIT 38.3 % (36.0-47.0); HEMOGLOBIN 11.6 g/dl (12.0-15.5); LYMPH # 3.6 10^3/uL (1.5-5.0); LYMPH % 32.9 % (24.0-44.0); MEAN CORPUSCULAR HEMOGLOBIN 24.7 pg (27.0-33.0); MEAN CORPUSCULAR HGB CONC 30.3 g/dl (32.0-36.5); MEAN CORPUSCULAR VOLUME 81.5 fl (80.0-96.0); MONO # 0.8 10^3/uL (0.0-0.8); MONO % 7.6 % (2.0-8.0); NEUTROPHILS # 6.3 10^3/uL (1.5-8.5); NEUTROPHILS % 56.8 % (36.0-66.0); PLATELET COUNT, AUTOMATED 290 10^3/uL (150-450); WHITE BLOOD COUNT 11.1 10^3/uL (4.0-10.0)
[2024-04-02 11:10] LABS: HEMOGLOBIN A1c 5.4 % (4.0-6.0)
[2024-04-02 11:23] LABS: ALBUMIN 3.9 G/DL (3.2-5.2); ALKALINE PHOSPHATASE 71 U/L (46-116); ALT/SGPT 20 U/L (7.0-40); AST/SGOT 12 U/L (<34); BILIRUBIN,TOTAL 0.3 MG/DL (0.3-1.2); BLOOD UREA NITROGEN 13 MG/DL (9-23); CALCIUM LEVEL 9.2 MG/DL (8.5-10.1); CARBON DIOXIDE LEVEL 24 MMOL/L (20-31); CHLORIDE LEVEL 108 MMOL/L (98-107); CHOLESTEROL LEVEL 196 MG/DL (<200); CHOLESTEROL RISK RATIO 5.31 (<5); CREATININE FOR GFR 0.72 MG/DL (0.55-1.30); FREE T4 1.01 NG/DL (0.89-1.76); GLOMERULAR FILTRATION RATE > 60.0 (>60); GLUCOSE, FASTING 97 MG/DL (60-100); HDL CHOLESTEROL 36.9 MG/DL (>40); LDL CHOLESTEROL 129.9 MG/DL (<100); NON-HDL-C 159.1 MG/DL; POTASSIUM SERUM 4.3 MMOL/L (3.5-5.1); SODIUM LEVEL 140 MMOL/L (136-145); THYROID STIMULATING HORMONE 1.407 uIU/ML (0.55-4.78); TOTAL PROTEIN 6.7 G/DL (5.7-8.2); TRIGLYCERIDES LEVEL 146 MG/DL (<150)
== END ==
LOC: M PLALAB 07:10
PROVIDERS: ATTEND Nurse Practitioner Family
DX: E78.2 Mixed hyperlipidemia (principal); R53.83 Other fatigue; R73.09 Other abnormal glucose; Z83.3 Family history of diabetes mellitus

== ENCOUNTER 2024-06-08 05:59 | Day surgery (SDC) | payer OTHER ==
[~2024-06-08] VITALS: Ht 165.1 cm; Wt 122.5 kg
[~2024-06-08 05:59] MED LIST changes: +BUPR75TA5 PO; +HAIR1CHW PO; +TOPI25TA10 PO; +VENL37.598 PO
[2024-06-08] MEDS ORDERED: LR 1,000 ML IV SCH (06:30)
[2024-06-08 06:43] LABS: HEMATOCRIT 36.5 % (36.0-47.0); HEMOGLOBIN 11.1 g/dl (12.0-15.5); MEAN CORPUSCULAR HEMOGLOBIN 24.3 pg (27.0-33.0); MEAN CORPUSCULAR HGB CONC 30.4 g/dl (32.0-36.5); MEAN CORPUSCULAR VOLUME 79.9 fl (80.0-96.0); PLATELET COUNT, AUTOMATED 299 10^3/uL (150-450); RED BLOOD COUNT 4.57 10^6/uL (4.00-5.40); WHITE BLOOD COUNT 8.5 10^3/uL (4.0-10.0)
[2024-06-08] MEDS ORDERED: ROCURONIUM BROMIDE 50MG/5ML VIAL As Ordered ONE (07:13)
[2024-06-08] MEDS ORDERED: fentaNYL 100 MCG/2 ML INJECTION As Ordered ONE (07:13)
[2024-06-08] MEDS ORDERED: ONDANSETRON 4MG 2ML VIAL As Ordered ONE (07:13)
[2024-06-08] MEDS ORDERED: LIDOCAINE 2% 100MG/5ML SDV (FOR ANES.) As Ordered ONE (07:13)
[2024-06-08] MEDS ORDERED: propofoL 200 MG/20 ML VIAL As Ordered ONE (07:13)
[2024-06-08] MEDS ORDERED: KETOROLAC 60MG 2ML VIAL As Ordered ONE (07:14)
[2024-06-08] MEDS ORDERED: MIDAZOLAM INJ 2MG/2ML VIAL As Ordered ONE (07:14)
[2024-06-08] MEDS ORDERED: SUGAMMADEX SODIUM 500 MG/5 ML VIAL (BRIDION) As Ordered ONE (07:14)
[2024-06-08] MEDS ORDERED: METHYLENE BLUE 0.5% (5MG/ML) 10 ML AMP (PROVAYBLUE) As Ordered ONE (07:15)
[2024-06-08] MEDS: SCOPOLAMINE 1MG TRANSDERMAL PATCH TOP ONE (07:37)
[2024-06-08] MEDS: ceFAZolin SOD 1 GM in D5W MINI-BAG PLUS 50 ML IV ONE (07:37)
[2024-06-08] MEDS: ceFAZolin SOD 2 GM in IV 1 EA IV ONE (07:37)
[2024-06-08] MEDS ORDERED: ACETAMINOPHEN 1000MG 100ML IV BAG As Ordered ONE (08:22)
[2024-06-08] MEDS ORDERED: HYDROmorphone HCL 2MG/ML 1ML VIAL As Ordered ONE (08:43)
[2024-06-08] MEDS ORDERED: LABETALOL 100MG/20ML VIAL As Ordered ONE (09:05)
[2024-06-08] MEDS ORDERED: dexmedeTOMIDine (4MCG/ML)200MCG/50ML BTL (PRECEDEX) As Ordered ONE (09:13)
[2024-06-08] MEDS ORDERED: fentaNYL 100 MCG/2 ML INJECTION IV PRN (10:30)
[2024-06-08] MEDS ORDERED: HYDROMORPHONE HCL 0.5 MG/ 0.5 ML SYRINGE IV PRN (10:30)
[2024-06-08] MEDS ORDERED: oxyCODONE 5MG TAB PO PRN (10:30)
[2024-06-08] MEDS: ONDANSETRON 4MG 2ML VIAL IV PRN (10:46)
[2024-06-08] MEDS: METOCLOPRAMIDE INJ 10MG/2ML VIAL IV ONE (10:56)
[2024-06-08] MEDS: LR 1,000 ML IV SCH ×2 (10:57→11:58)
[2024-06-08 11:50] VITALS: BP 139/75; TEMP 97; O2SAT 98
[2024-06-08 12:20] VITALS: BP 133/73; TEMP 97.6; O2SAT 94
[2024-06-08] MEDS ORDERED: MORPHINE 4 MG/ML 1ML VIAL IV PRN (12:30)
[2024-06-08] MEDS ORDERED: ONDANSETRON 4MG 2ML VIAL IV PRN (12:30)
[2024-06-08] MEDS ORDERED: PERCOCET 5MG/325MG TAB PO PRN (12:30)
[2024-06-08 13:20] VITALS: BP 126/70; TEMP 97.8; O2SAT 95
[2024-06-08] MEDS: PERCOCET 5MG/325MG TAB PO PRN (13:30)
[2024-06-08] MEDS ORDERED: LORA-1041 PO (14:13)
[2024-06-08] MEDS ORDERED: HOME MED LIST COMPLETE! XX SCH (14:15)
[2024-06-08 14:20] VITALS: BP 124/60; TEMP 97.9; O2SAT 94
[2024-06-08 15:20] VITALS: BP 120/66; TEMP 97.6; O2SAT 96
[2024-06-08] MEDS: KETOROLAC 30 MG/ML 1ML VIAL IV SCH (16:06)
[2024-06-08 16:30] VITALS: BP 107/60; TEMP 98.1; O2SAT 94
[2024-06-08] MEDS ORDERED: ONDA-282 PO (19:46)
[2024-06-08] MEDS ORDERED: DOCUSATE SODIUM 100MG CAPSULE PO SCH (21:00)
[2024-06-09] MEDS ORDERED: IBUPROFEN 800 MG TAB PO SCH (12:00)
== END 2024-06-08 17:55 | disposition home or self-care (01) ==
LOC: M SDC 05:59 → M RR INP 10:25 → UNDOADMOB 10:25 → M RR INP 11:45 → M PED 11:45 → UNDODISOB 17:55 → M SDC 17:55
PROVIDERS: ATTEND Obstetrics & Gynecology
DX: N93.9 Abnormal uterine and vaginal bleeding, unspecified (principal); R10.2 Pelvic and perineal pain; D25.1 Intramural leiomyoma of uterus; N73.6 Female pelvic peritoneal adhesions (postinfective); F41.9 Anxiety disorder, unspecified; E66.01 Morbid (severe) obesity due to excess calories; Z79.899 Other long term (current) drug therapy; Z91.040 Latex allergy status; Z91.041 Radiographic dye allergy status; Z88.0 Allergy status to penicillin; Z88.2 Allergy status to sulfonamides; J30.2 Other seasonal allergic rhinitis
CPT/HCPCS: 36415; 58571; 81025; 85027; 86850; 86900; 86901; 88307; J0131; J0665; J0690; J1100; J1171; J1885; J1920; J2250; J2405; J2765; J3010; Q9968; S2900

== ENCOUNTER → 2024-11-06 | Outpatient (CLI) | payer OTHER ==
[~2024-11-06] MED LIST changes: +LORA-1041 PO
== END ==
LOC: M WUC 11:05
PROVIDERS: ATTEND Nurse Practitioner Family
DX: M25.511 Pain in right shoulder (principal); M50.323 Other cervical disc degeneration at C6-C7 level; M25.78 Osteophyte, vertebrae

== ENCOUNTER → 2025-03-25 | Outpatient (CLI) | payer OTHER ==
[~2025-03-25] MED LIST changes: -FLOM0.4C39 PO; +TAMS-18 PO; +TOPI-256 PO; -TOPI25TA10 PO
[2025-03-25 13:51] LABS: BASO # 0.1 10^3/uL (0.0-0.2); BASO % 1.2 % (0.0-1.0); EOS # 0.2 10^3/uL (0.0-0.5); EOS % 2.1 % (0.0-3.0); LYMPH # 2.5 10^3/uL (1.5-5.0); LYMPH % 32.2 % (24.0-44.0); MONO # 0.6 10^3/uL (0.0-0.8); MONO % 7.7 % (2.0-8.0); NEUTROPHILS # 4.4 10^3/uL (1.5-8.5); NEUTROPHILS % 56.0 % (36.0-66.0); PLATELET COUNT, AUTOMATED 295 10^3/uL (150-450)
[2025-03-25 14:02] LABS: ALT/SGPT 51 U/L (7.0-40); AST/SGOT 42 U/L (<34); CALCIUM LEVEL 9.9 MG/DL (8.5-10.1); CARBON DIOXIDE LEVEL 23 MMOL/L (20-31); CHLORIDE LEVEL 103 MMOL/L (98-107); CHOLESTEROL LEVEL 252 MG/DL (<200); CHOLESTEROL RISK RATIO 6.96 (<5); CREATININE FOR GFR 0.61 MG/DL (0.55-1.30); GLOMERULAR FILTRATION RATE > 90.0 (>60); LDL CHOLESTEROL 138.0 MG/DL (<100); MAGNESIUM LEVEL 1.8 MG/DL (1.8-2.4); NON-HDL-C 215.8 MG/DL; POTASSIUM SERUM 4.1 MMOL/L (3.5-5.1); SODIUM LEVEL 142 MMOL/L (136-145); TRIGLYCERIDES LEVEL 389 MG/DL (<150)
[2025-03-25 14:03] LABS: FREE T4 1.02 NG/DL (0.89-1.76)
== END ==
LOC: M PLALAB 10:07
PROVIDERS: ATTEND Nurse Practitioner Family
DX: I10 Essential (primary) hypertension (principal); R53.83 Other fatigue; E78.2 Mixed hyperlipidemia

== ENCOUNTER → 2025-04-09 | Outpatient (CLI) | payer OTHER ==
[2025-04-09 10:25] LABS: BASO # 0.1 10^3/uL (0.0-0.2); BASO % 0.8 % (0.0-1.0); EOS # 0.1 10^3/uL (0.0-0.5); EOS % 1.3 % (0.0-3.0); LYMPH # 3.1 10^3/uL (1.5-5.0); LYMPH % 30.1 % (24.0-44.0); MONO # 0.9 10^3/uL (0.0-0.8); MONO % 8.6 % (2.0-8.0); NEUTROPHILS # 6.1 10^3/uL (1.5-8.5); NEUTROPHILS % 58.5 % (36.0-66.0); PLATELET COUNT, AUTOMATED 295 10^3/uL (150-450)
[2025-04-09 10:58] LABS: ALT/SGPT 35 U/L (7.0-40); AST/SGOT 36 U/L (<34); CALCIUM LEVEL 9.4 MG/DL (8.5-10.1); CARBON DIOXIDE LEVEL 24 MMOL/L (20-31); CHLORIDE LEVEL 102 MMOL/L (98-107); CREATININE FOR GFR 0.65 MG/DL (0.55-1.30); GLOMERULAR FILTRATION RATE > 90.0 (>60); POTASSIUM SERUM 4.3 MMOL/L (3.5-5.1); SODIUM LEVEL 139 MMOL/L (136-145)
== END ==
LOC: M PLALAB 09:13
PROVIDERS: ATTEND Nurse Practitioner Family
DX: D72.829 Elevated white blood cell count, unspecified (principal); I10 Essential (primary) hypertension

== ENCOUNTER → 2025-05-13 | Outpatient (CLI) | payer OTHER ==
[~2025-05-13] MED LIST changes: -IBUP-1022 PO; +IBUP600T42 PO
[2025-05-13 15:45] LABS: BASO # 0.1 10^3/uL (0.0-0.2); BASO % 0.7 % (0.0-1.0); EOS # 0.1 10^3/uL (0.0-0.5); EOS % 1.7 % (0.0-3.0); LYMPH # 3.0 10^3/uL (1.5-5.0); LYMPH % 36.7 % (24.0-44.0); MONO # 0.8 10^3/uL (0.0-0.8); MONO % 9.8 % (2.0-8.0); NEUTROPHILS # 4.2 10^3/uL (1.5-8.5); NEUTROPHILS % 50.7 % (36.0-66.0); PLATELET COUNT, AUTOMATED 277 10^3/uL (150-450)
[2025-05-13 15:55] LABS: ESTIMATED AVERAGE GLUCOSE 114.0 MG/DL (60-110)
[2025-05-13 16:13] LABS: ALT/SGPT 56 U/L (7.0-40); AST/SGOT 41 U/L (<34); CALCIUM LEVEL 9.6 MG/DL (8.5-10.1); CARBON DIOXIDE LEVEL 24 MMOL/L (20-31); CHLORIDE LEVEL 104 MMOL/L (98-107); CHOLESTEROL LEVEL 224 MG/DL (<200); CHOLESTEROL RISK RATIO 6.34 (<5); CREATININE FOR GFR 0.68 MG/DL (0.55-1.30); GLOMERULAR FILTRATION RATE > 90.0 (>58); LDL CHOLESTEROL 141.9 MG/DL (<100); NON-HDL-C 188.7 MG/DL; POTASSIUM SERUM 4.6 MMOL/L (3.5-5.1); SODIUM LEVEL 140 MMOL/L (136-145); TRIGLYCERIDES LEVEL 234 MG/DL (<150)
[2025-05-13 16:15] LABS: FREE T4 1.19 NG/DL (0.89-1.76)
== END ==
LOC: M LAB 09:44 → M PLALAB 09:44
PROVIDERS: ATTEND Psychiatry & Neurology Neurology
DX: L65.9 Nonscarring hair loss, unspecified (principal); E78.2 Mixed hyperlipidemia; D72.829 Elevated white blood cell count, unspecified; R73.01 Impaired fasting glucose; I10 Essential (primary) hypertension

== ENCOUNTER → 2025-07-19 | Outpatient (CLI) | payer OTHER ==
[~2025-07-19] MED LIST changes: +BUPR-363 PO; -BUPR75TA5 PO
[2025-07-19 15:27] LABS: IRON (FE) 46 UG/DL (50-170)
[2025-07-19 15:28] LABS: ALT/SGPT 64 U/L (7.0-40); AST/SGOT 36 U/L (<34); CALCIUM LEVEL 9.7 MG/DL (8.5-10.1); CARBON DIOXIDE LEVEL 25 MMOL/L (20-31); CHLORIDE LEVEL 104 MMOL/L (98-107); CHOLESTEROL LEVEL 228 MG/DL (<200); CHOLESTEROL RISK RATIO 6.33 (<5); CREATININE FOR GFR 0.64 MG/DL (0.55-1.30); GLOMERULAR FILTRATION RATE > 90.0 (>58); LDL CHOLESTEROL 142.0 MG/DL (<100); MAGNESIUM LEVEL 1.9 MG/DL (1.8-2.4); NON-HDL-C 192.0 MG/DL; PERCENT SATURATION 11.8 % (13.2-45.0); POTASSIUM SERUM 4.4 MMOL/L (3.5-5.1); SODIUM LEVEL 140 MMOL/L (136-145); TRIGLYCERIDES LEVEL 250 MG/DL (<150)
[2025-07-19 15:29] LABS: FREE T4 1.17 NG/DL (0.89-1.76)
[2025-07-19 15:30] LABS: BASO # 0.1 10^3/uL (0.0-0.2); BASO % 0.7 % (0.0-1.0); EOS # 0.2 10^3/uL (0.0-0.5); EOS % 1.5 % (0.0-3.0); LYMPH # 3.6 10^3/uL (1.5-5.0); LYMPH % 34.0 % (24.0-44.0); MONO # 0.9 10^3/uL (0.0-0.8); MONO % 8.8 % (2.0-8.0); NEUTROPHILS # 5.7 10^3/uL (1.5-8.5); NEUTROPHILS % 54.6 % (36.0-66.0); PLATELET COUNT, AUTOMATED 352 10^3/uL (150-450)
[2025-07-19 15:52] LABS: ESTIMATED AVERAGE GLUCOSE 103.0 MG/DL (60-110)
== END ==
LOC: M PLALAB 09:31
PROVIDERS: ATTEND Nurse Practitioner Family
DX: E78.2 Mixed hyperlipidemia (principal); I10 Essential (primary) hypertension; D50.9 Iron deficiency anemia, unspecified; R73.01 Impaired fasting glucose